=== PATIENT | male | born 1960 | race Caucasian/White ===

== ENCOUNTER 2024-04-02 15:48 | Outpatient (REF) | payer OTHER, SELFPAY ==
--- NOTE | ~2024-04-02 | MR_ITS ---
EXAMINATION: MR BRAIN WITHOUT AND WITH CONTRAST CLINICAL INFORMATION: Twitching left side of face for 3 months with numbness and bridging in ears. COMPARISON: None available. TECHNIQUE: Multiplanar, multisequence MRI of the brain was obtained before and after the intravenous administration of 8 mL of Gadavist. FINDINGS: There is no restricted diffusion seen to suspect any acute ischemic changes. There are no abnormal T2 FLAIR foci seen. There is no edema, extra-axial collection or midline shift. The lateral ventricles are symmetrical in size and configuration and normal for patient's age. No abnormality seen in the posterior fossa. There is normal symmetrical appearing 5th and 7/8th nerve roots without any enhancement or mass effect. Visualized bilateral cavernous sinuses, Meckel's cave and the skull base appears unremarkable. No abnormal enhancing mass or aneurysm visualized. Diffuse mucoperiosteal thickening involving bilateral ethmoid, maxillary, frontal sinuses. The mastoid air cells are well-aerated. Bone marrow signal and the scalp soft tissues are unremarkable. There is normal flow-void signal seen in major cerebral vasculature. MR/MR head/brain wo/w con IMPRESSION: Essentially unremarkable MRI brain with and without contrast. The 5th nerve roots are symmetrical and appear normal. The course. Bilateral chronic inflammatory changes of the sinuses Electronically signed by: Diego Liu MD 04/03/2024 10:45 AM [email or web address]
[2024-04-02] MEDS: gadobutroL 10 ML VIAL 8 ML IVPUSH (16:39)
--- OUTSIDE RECORDS SUMMARY | 2024-04-02 17:35 | XMS_ITS | Data Portability ---
Author Organization [facility], Main Office Address [address] [facility] [address] [place] [id number] Care Team Providers Care Back Feeder Plywood Layup Line Name Role Phone RAUL HILL Primary Care Provider [phone] KEYANA SERRANO Cutting Machine Operator IVAN BUCKNER Neurologist ALONA LOBO Orthopedic Surgeon GWENDOLYN HERNANDEZ Cupola Tapper Helper JANNIE SEARS Neurologist KANDIS ACKERMAN French Teacher [phone] JUSTIN JONES Special Population Paraprofessional Assessment Encounter Date Assessment Date Assessment LastModified by Organization Details LastModified Time 09/19/2023 09/19/2023 Discussed with patient the signs/symptoms warranted for a return to office visit and/or an ER visit. Patient understood and agreed with the plan. Not available 09/19/2023 11:48:54 12/11/2023 12/11/2023 This service was provided using telemedicine. Patient consented to telephone visit Patient was located in the [facility]. Provider was located in the office. No other persons participated in the telemedicine visit except for the patient unless otherwise indicated here. {{}} Total time of visit was 22 minutes. pmadden Not available 12/11/2023 16:51:50 Plan of Treatment Reminders Order Date Submit Date Provider Last Modified By Organization Details Last Modified Time Details Appointments PE EST 2024 02:15P M Raul Hill MD Not available Not available Not available Lab vitamin B12 + folate, serum or blood 2023 024 [place] [facility], [address], [address], [place], [address], 09/19/2023 11:41:44 HbA1c (hemoglo bin A1c), blood 2023 024 [place] [facility], [address], [address], [place], [address], 09/19/2023 11:41:45 CBC w/ auto diff 2023 024 [place] [facility], [address], [address], [place], [address], 09/19/2023 11:41:46 magnesiu m, serum or plasma 2023 024 [place] [facility], [address], [address], [place], [address], 09/19/2023 11:41:45 CMP, serum or plasma 2023 024 [place] [facility], [address], [address], [place], [address], 09/19/2023 11:41:45 vitamin D, 25-hydro xy, total, serum 2023 024 [place] [facility], [address], [address], [place], [address], 09/19/2023 11:41:44 TSH + free T4, serum 2023 024 [place] [facility], [address], [address], [place], [address], 09/19/2023 11:41:45 ESR (erythro cyte sediment ation rate), blood 2023 024 [place] [facility], [address], [address], [place], [address], 09/19/2023 11:41:46 cobalami n and folate panel, serum 2023 024 [facility], [address], [address], [place], [address], 02/21/2024 20:06:12 magnesiu m, serum or plasma 2023 024 [facility], [address], [address], [place], [address], 02/21/2024 20:06:15 CBC w/ auto diff 2023 024 [facility], [address], [address], [place], [address], 02/21/2024 20:06:11 CMP, serum or plasma 2023 024 [facility], [address], [address], [place], [address], 02/21/2024 20:06:12 vitamin D, 25-hydro xy, total, serum 2023 024 [facility], [address], [address], [place], [address], 02/21/2024 20:06:13 TSH, ultra-se nsitive, serum 2023 024 [facility], [address], [address], [place], [address], 02/21/2024 20:06:14 Referral neurolog ist referral 2023 024 suraj Sears MD, [address] [place] [address] , [address], [place], [address], 02/22/2024 14:47:29 oral & maxillof acial surgeon referral 2024 025 [email or web address] [facility], [address] [facility], [place], [address], 03/27/2024 16:43:26 Procedures None recorded . Surgeries None recorded . Imaging XR, chest, 2 view 10/08/ 2024 10/08/2 024 [facility], [facility] [place], [address], 12/12/2023 16:25:05 XR, sacroili ac joint(s) - rule out SIJ 2023 024 [facility], [address] [place] [address], [address], 01/27/2024 23:39:35 XR, hip, unilater al, 4 or more view - eval of left hip pain, rule out OA 2023 024 [facility], [facility] [place], [address], 01/27/2024 23:39:34 Medication Orders Zithroma x Z-Mayito 250 mg tablet 2023 024 [facility], [address] [place], [address], 01/10/2024 14:46:38 monteluk ast 10 mg tablet 2023 024 [facility], [address] [place], [address], 01/10/2024 14:47:33 Patient TargetsNo targets recorded. Patient Instructions Encounter Date Encounter Id Patient Instructions Last Modified By Organization Details Last Modified Time 09/19/2023 [id number] neuropathic pain: care instructions Not available 09/19/2023 11:41:30 12/11/2023 [id number] rec. albuterol 1-2 puffs 3x/day x 3 days, then use every 4 hours as needed for shortness of breath / coughing fits pmadden Not available 12/11/2023 16:43:15 Follow up if no improvement or if symptoms worsen. pmadden Not available 12/11/2023 16:29:11 01/10/2024 [id number] hip bursitis: exercises [email or web address] Not available 01/10/2024 15:25:25 trochanteric bursitis: exercises awychowski Not available 01/10/2024 15:25:24 sacroiliac pain: exercises awychowski Not available 01/10/2024 15:25:25 02/20/2024 [id number] Follow up if no improvement or if symptoms worsen. pmadden Not available 02/20/2024 11:33:19 Reason for Referral Neurologist Referral for Par esthesia Referring Physician: Claudio Pace, Internal Medicine, Encounter Date: 02/20/2024 Oral & Maxillofacial Surgeon Referral for Traumatic hematoma Referring Physician: Joann Mcfarland, Family Medicine, Encounter Date: 03/27/2024 Results Created Date Observation Date Name Description Value Unit Range Abnormal Flag Note LastModifiedBy Organization Detail LastModifiedTime 01/06/20 24 01/07/2024 CBC WITH DIFFE RENTI AL/PL ATELE T WBC 6.1 x10e3 /uL 3.4-10 .8 normal Not Available [facility] ([facility]) [address] [place], [address], 01/08/2024 20:06:32 01/06/20 24 01/07/2024 CBC WITH DIFFE RENTI AL/PL ATELE T RBC 4.96 x10e6 /uL 4.14-5 .80 normal Not Available [facility] ([facility]) [address] [place], [address], 01/08/2024 20:06:32 01/06/20 24 01/07/2024 CBC WITH DIFFE RENTI AL/PL ATELE T hemoglobin 14.8 g/dL 13.0-1 7.7 normal Not Available [facility] ([facility]) [address] [place], [address], 01/08/2024 20:06:32 01/06/20 24 01/07/2024 CBC WITH DIFFE RENTI AL/PL ATELE T hematocrit 46.0 % 37.5-5 1.0 normal Not Available [facility] ([facility]) [address] [place], [address], 01/08/2024 20:06:32 01/06/20 24 01/07/2024 CBC WITH DIFFE RENTI AL/PL ATELE T MCV 93 fL 79-97 normal Not Available [facility] ([facility]) [address] [facility], [place], [address], 01/08/2024 20:06:32 01/06/20 24 01/07/2024 CBC WITH DIFFE RENTI AL/PL ATELE T MCH 29.8 pg 26.6-3 3.0 normal Not Available [facility] ([facility]) [address] [facility], [place], [address], 01/08/2024 20:06:32 01/06/20 24 01/07/2024 CBC WITH DIFFE RENTI AL/PL ATELE T MCHC 32.2 g/dL 31.5-3 5.7 normal Not Available [facility] ([facility]) [address] [facility], [place], [address], 01/08/2024 20:06:32 01/06/20 24 01/07/2024 CBC WITH DIFFE RENTI AL/PL ATELE T RDW 12.8 % 11.6-1 5.4 Not Available [facility] ([facility]) [address] [facility], [place], [address], 01/08/2024 20:06:32 01/06/20 24 01/07/2024 CBC WITH DIFFE RENTI AL/PL ATELE T platelets 223 x10e3 /uL 150-45 0 normal Not Available [facility] ([facility]) [address] [facility], [place], [address], 01/08/2024 20:06:32 01/06/20 24 01/07/2024 CBC WITH DIFFE RENTI AL/PL ATELE T neutrophils 57 % not estab. normal Not Available [facility] ([facility]) [address] [facility], [place], [address], 01/08/2024 20:06:32 01/06/20 24 01/07/2024 CBC WITH DIFFE RENTI AL/PL ATELE T lymphs 27 % not estab. normal Not Available [facility] ([facility]) [address] [facility], [place], [address], 01/08/2024 20:06:32 01/06/20 24 01/07/2024 CBC WITH DIFFE RENTI AL/PL ATELE T monocytes 8 % not estab. normal Not Available [facility] ([facility]) [address] [facility], [place], [address], 01/08/2024 20:06:32 01/06/20 24 01/07/2024 CBC WITH DIFFE RENTI AL/PL ATELE T eos 6 % not estab. normal Not Available [facility] ([facility]) [address] [facility], [place], [address], 01/08/2024 20:06:32 01/06/20 24 01/07/2024 CBC WITH DIFFE RENTI AL/PL ATELE T basos 1 % not estab. normal Not Available [facility] ([facility]) [address] [facility], [place], [address], 01/08/2024 20:06:32 01/06/20 24 01/07/2024 CBC WITH DIFFE RENTI AL/PL ATELE T immature cells CORE FEEDER Not Available [facility] ([facility]) [address] [facility], [place], [address], 01/08/2024 20:06:32 01/06/20 24 01/07/2024 CBC WITH DIFFE RENTI AL/PL ATELE T neutrophils (absolute) 3.6 x10e3 /uL 1.4-7. 0 normal Not Available [facility] ([facility]) [address] [facility], [place], [address], 01/08/2024 20:06:32 01/06/20 24 01/07/2024 CBC WITH DIFFE RENTI AL/PL ATELE T lymphs (absolute) 1.6 x10e3 /uL 0.7-3. 1 normal Not Available [facility] ([facility]) [address] [place], [address], 01/08/2024 20:06:32 01/06/20 24 01/07/2024 CBC WITH DIFFE RENTI AL/PL ATELE T monocytes(ab solute) 0.5 x10e3 /uL 0.1-0. 9 normal Not Available [facility] ([facility]) [address] [place], [address], 01/08/2024 20:06:32 01/06/20 24 01/07/2024 CBC WITH DIFFE RENTI AL/PL ATELE T eos (absolute) 0.3 x10e3 /uL 0.0-0. 4 normal Not Available [facility] ([facility]) [address] [place], [address], 01/08/2024 20:06:32 01/06/20 24 01/07/2024 CBC WITH DIFFE RENTI AL/PL ATELE T baso (absolute) 0.1 x10e3 /uL 0.0-0. 2 normal Not Available [facility] ([facility]) [address] [place], [address], 01/08/2024 20:06:32 01/06/20 24 01/07/2024 CBC WITH DIFFE RENTI AL/PL ATELE T immature granulocytes 1 % not estab. Not Available [facility] ([facility]) [address] [place], [address], 01/08/2024 20:06:32 01/06/20 24 01/07/2024 CBC WITH DIFFE RENTI AL/PL ATELE T immature grans (abs) 0.0 x10e3 /uL 0.0-0. 1 Not Available [facility] ([facility]) [address] [place], [address], 01/08/2024 20:06:32 01/06/20 24 01/07/2024 CBC WITH DIFFE RENTI AL/PL ATELE T NRBC CORE FEEDER Not Available [facility] ([facility]) [address] [facility], [place], [address], 01/08/2024 20:06:32 01/06/20 24 01/07/2024 CBC WITH DIFFE RENTI AL/PL ATELE T hematology comments: CORE FEEDER Not Available [facility] ([facility]) [address] [facility], [place], [address], 01/08/2024 20:06:32 01/06/20 24 01/07/2024 COMP. METAB OLIC PANEL (14) glucose 101 mg/dL 70-99 above high normal Not Available [facility] ([facility]) [address] [facility], [place], [address], 01/08/2024 20:06:33 01/06/20 24 01/07/2024 COMP. METAB OLIC PANEL (14) BUN 17 mg/dL 8-27 normal Not Available [facility] ([facility]) [address] [facility], [place], [address], 01/08/2024 20:06:33 01/06/20 24 01/07/2024 COMP. METAB OLIC PANEL (14) creatinine 1.13 mg/dL 0.76-1 .27 normal Not Available [facility] ([facility]) [address] [facility], [place], [address], 01/08/2024 20:06:33 01/06/20 24 01/07/2024 COMP. METAB OLIC PANEL (14) eGFR 74 mL/mi n/1.7 3 >59 normal Not Available [facility] ([facility]) [address] [facility], [place], [address], 01/08/2024 20:06:33 01/06/20 24 01/07/2024 COMP. METAB OLIC PANEL (14) BUN/creatini ne ratio 15 10-24 normal Not Available [facility] ([facility]) [address] [facility] [place], [address], 01/08/2024 20:06:33 01/06/20 24 01/07/2024 COMP. METAB OLIC PANEL (14) sodium 140 mmol/ L 134-14 4 normal Not Available [facility] ([facility]) [address] [place], [address], 01/08/2024 20:06:33 01/06/20 24 01/07/2024 COMP. METAB OLIC PANEL (14) potassium 4.7 mmol/ L 3.5-5. 2 normal Not Available [facility] ([facility]) [address], [place], [address], 01/08/2024 20:06:33 01/06/20 24 01/07/2024 COMP. METAB OLIC PANEL (14) chloride 103 mmol/ L 96-106 normal Not Available [facility] ([facility]) [address] [place], [address], 01/08/2024 20:06:33 01/06/20 24 01/07/2024 COMP. METAB OLIC PANEL (14) carbon dioxide, total 25 mmol/ L 20-29 normal Not Available [facility] ([facility]) [address] [facility] [place], [address], 01/08/2024 20:06:33 01/06/20 24 01/07/2024 COMP. METAB OLIC PANEL (14) calcium 9.6 mg/dL 8.6-10 .2 normal Not Available [facility] ([facility]) [address] [facility] [place], [address], 01/08/2024 20:06:33 01/06/20 24 01/07/2024 COMP. METAB OLIC PANEL (14) protein, total 6.7 g/dL 6.0-8. 5 normal Not Available [facility] ([facility]) [address], [place], [address], 01/08/2024 20:06:33 01/06/20 24 01/07/2024 COMP. METAB OLIC PANEL (14) albumin 4.6 g/dL 3.9-4. 9 normal Not Available [facility] ([facility]) [address], [place], [address], 01/08/2024 20:06:33 01/06/20 24 01/07/2024 COMP. METAB OLIC PANEL (14) globulin, total 2.1 g/dL 1.5-4. 5 Not Available [facility] ([facility]) [address] [place], [address], 01/08/2024 20:06:33 01/06/20 24 01/07/2024 COMP. METAB OLIC PANEL (14) bilirubin, total 1.1 mg/dL 0.0-1. 2 normal Not Available [facility] ([facility]) [address], [place], [address], 01/08/2024 20:06:33 01/06/20 24 01/07/2024 COMP. METAB OLIC PANEL (14) alkaline phosphatase 77 IU/L 44-121 normal Not Available [facility]) [address] [place], [address], 01/08/2024 20:06:33 01/06/20 24 01/07/2024 COMP. METAB OLIC PANEL (14) AST (SGOT) 22 IU/L 0-40 normal Not Available [facility] ([facility]) [address] [place], [address], 01/08/2024 20:06:33 01/06/20 24 01/07/2024 COMP. METAB OLIC PANEL (14) ALT (SGPT) 36 IU/L 0-44 normal Not Available [facility] ([facility]) [address] , [place], [address], 01/08/2024 20:06:33 01/06/20 24 01/07/2024 LDL GIFTY STERO L (DIRE CT) LDL chol. (direct) 78 mg/dL 0-99 Not Available [facility] ([facility]) [address] [facility], [place], [address], 01/08/2024 20:06:34 01/06/20 24 01/07/2024 LDL GIFTY STERO L (DIRE CT) LDL direct comment: CORE FEEDER Not Available [facility] ([facility]) [address] [facility], [place], [address], 01/08/2024 20:06:34 01/06/20 24 01/08/2024 HEMOG LOBIN A1C hemoglobin A1C 5.7 % 4.8-5. 6 above high normal Predi abete s: 5.7 - 6.4 Diabe emily: >6.4 Glyce keely contr ol for adult s with diabe emily: <7.0 Not Available [facility] ([facility]) [address] [facility], [place], [address], 01/08/2024 20:06:35 01/06/20 24 01/08/2024 T-TRA NSGLU TAMIN ASE (TTG) IGA T-transgluta minase (ttg) IgA <2 U/mL 0-3 Negat hammad 0 - 3 Weak Posit hammad 4 - 10 Posit hammad >10 Tissu e Trans gluta jose manuel e (tTG) has been ident ified as the endom ysial antig en. Studi es have demon str- ated that endom ysial IgA antib odies have over 99% speci ficit y for glute n sensi tive enter opath y. Not Available [facility] ([facility]) [address] [facility], [place], [address], 01/08/2024 20:06:35 01/06/20 24 01/07/2024 CREAT INE KINAS E,TOT AL creatine kinase,total 101 U/L 41-331 normal Not Available [facility]) [address] [facility], [place], [address], 01/08/2024 20:06:36 01/06/20 24 01/07/2024 MAGNE SIUM magnesium 2.1 mg/dL 1.6-2. 3 normal Not Available [facility] ([facility]) [address] [facility], [place], [address], 01/08/2024 20:06:37 01/06/20 24 01/07/2024 IMMUN OGLOB ULIN A, QN, SERUM immunoglobul in A, qn, serum 166 mg/dL 61-437 normal Not Available [facility] ([facility]) [address] [facility], [place], [address], 01/08/2024 20:06:38 02/20/20 24 02/20/2024 CBC WITH DIFFE RENTI AL/PL ATELE T WBC 6.8 x10e3 /uL 3.4-10 .8 normal Not Available [facility] ([facility]) [address] [place], [address], 02/21/2024 20:06:11 02/20/20 24 02/20/2024 CBC WITH DIFFE RENTI AL/PL ATELE T RBC 4.94 x10e6 /uL 4.14-5 .80 normal Not Available [facility] ([facility]) [address] [place], [address], 02/21/2024 20:06:11 02/20/20 24 02/20/2024 CBC WITH DIFFE RENTI AL/PL ATELE T hemoglobin 15.1 g/dL 13.0-1 7.7 normal Not Available [facility] ([facility]) [address] [place], [address], 02/21/2024 20:06:11 02/20/20 24 02/20/2024 CBC WITH DIFFE RENTI AL/PL ATELE T hematocrit 46.2 % 37.5-5 1.0 normal Not Available [facility] ([facility]) [address] [place], [address], 02/21/2024 20:06:11 02/20/20 24 02/20/2024 CBC WITH DIFFE RENTI AL/PL ATELE T MCV 94 fL 79-97 normal Not Available [facility] ([facility]) [address] [place], [address], 02/21/2024 20:06:11 02/20/20 24 02/20/2024 CBC WITH DIFFE RENTI AL/PL ATELE T MCH 30.6 pg 26.6-3 3.0 normal Not Available [facility] ([facility]) [address] [facility], [place], [address], 02/21/2024 20:06:11 02/20/20 24 02/20/2024 CBC WITH DIFFE RENTI AL/PL ATELE T MCHC 32.7 g/dL 31.5-3 5.7 normal Not Available [facility] ([facility]) [address] [place], [address], 02/21/2024 20:06:11 02/20/20 24 02/20/2024 CBC WITH DIFFE RENTI AL/PL ATELE T RDW 12.6 % 11.6-1 5.4 Not Available [facility] ([facility]) [address] [place], [address], 02/21/2024 20:06:11 02/20/20 24 02/20/2024 CBC WITH DIFFE RENTI AL/PL ATELE T platelets 215 x10e3 /uL 150-45 0 normal Not Available [facility] ([facility]) [address] [place], [address], 02/21/2024 20:06:11 02/20/20 24 02/20/2024 CBC WITH DIFFE RENTI AL/PL ATELE T neutrophils 54 % not estab. normal Not Available [facility] ([facility]) [address] [facility], [place], [address], 02/21/2024 20:06:11 02/20/20 24 02/20/2024 CBC WITH DIFFE RENTI AL/PL ATELE T lymphs 30 % not estab. normal Not Available [facility] ([facility]) [address] [facility], [place], [address], 02/21/2024 20:06:11 02/20/20 24 02/20/2024 CBC WITH DIFFE RENTI AL/PL ATELE T monocytes 9 % not estab. normal Not Available [facility] ([facility]) [address] [place], [address], 02/21/2024 20:06:11 02/20/20 24 02/20/2024 CBC WITH DIFFE RENTI AL/PL ATELE T eos 6 % not estab. normal Not Available [facility] ([facility]) [address] [place], [address], 02/21/2024 20:06:11 02/20/20 24 02/20/2024 CBC WITH DIFFE RENTI AL/PL ATELE T basos 1 % not estab. normal Not Available [facility] ([facility]) [address] [place], [address], 02/21/2024 20:06:11 02/20/20 24 02/20/2024 CBC WITH DIFFE RENTI AL/PL ATELE T immature cells CORE FEEDER Not Available [facility] ([facility]) [address] [place], [address], 02/21/2024 20:06:11 02/20/20 24 02/20/2024 CBC WITH DIFFE RENTI AL/PL ATELE T neutrophils (absolute) 3.7 x10e3 /uL 1.4-7. 0 normal Not Available [facility] ([facility]) [address] [place], [address], 02/21/2024 20:06:11 02/20/20 24 02/20/2024 CBC WITH DIFFE RENTI AL/PL ATELE T lymphs (absolute) 2.1 x10e3 /uL 0.7-3. 1 normal Not Available [facility] ([facility]) [address] [facility], [place], [address], 02/21/2024 20:06:11 02/20/20 24 02/20/2024 CBC WITH DIFFE RENTI AL/PL ATELE T monocytes(ab solute) 0.6 x10e3 /uL 0.1-0. 9 normal Not Available [facility] ([facility]) [address] [facility], [place], [address], 02/21/2024 20:06:11 02/20/20 24 02/20/2024 CBC WITH DIFFE RENTI AL/PL ATELE T eos (absolute) 0.4 x10e3 /uL 0.0-0. 4 normal Not Available [facility] ([facility]) [address] [facility], [place], [address], 02/21/2024 20:06:11 02/20/20 24 02/20/2024 CBC WITH DIFFE RENTI AL/PL ATELE T baso (absolute) 0.1 x10e3 /uL 0.0-0. 2 normal Not Available [facility] ([facility]) [address] [facility], [place], [address], 02/21/2024 20:06:11 02/20/20 24 02/20/2024 CBC WITH DIFFE RENTI AL/PL ATELE T immature granulocytes 0 % not estab. Not Available [facility] ([facility]) [address] [facility], [place], [address], 02/21/2024 20:06:11 02/20/20 24 02/20/2024 CBC WITH DIFFE RENTI AL/PL ATELE T immature grans (abs) 0.0 x10e3 /uL 0.0-0. 1 Not Available [facility] ([facility]) [address], [place], [address], 02/21/2024 20:06:11 02/20/20 24 02/20/2024 CBC WITH DIFFE RENTI AL/PL ATELE T NRBC CORE FEEDER Not Available [facility] ([facility]) [address], [place], [address], 02/21/2024 20:06:11 02/20/20 24 02/20/2024 CBC WITH DIFFE RENTI AL/PL ATELE T hematology comments: CORE FEEDER Not Available [facility] ([facility]) [address], [place], [address], 02/21/2024 20:06:11 02/20/20 24 02/21/2024 COMP. METAB OLIC PANEL (14) glucose 93 mg/dL 70-99 normal Not Available [facility] ([facility]) [address], [place], [address], 02/21/2024 20:06:12 02/20/20 24 02/21/2024 COMP. METAB OLIC PANEL (14) BUN 13 mg/dL 8-27 normal Not Available [facility] ([facility]) [address] [place], [address], 02/21/2024 20:06:12 02/20/20 24 02/21/2024 COMP. METAB OLIC PANEL (14) creatinine 1.00 mg/dL 0.76-1 .27 normal Not Available [facility] ([facility]) [address] [place], [address], 02/21/2024 20:06:12 02/20/20 24 02/21/2024 COMP. METAB OLIC PANEL (14) eGFR 86 mL/mi n/1.7 3 >59 normal Not Available [facility] ([facility]) [address] [place], [address], 02/21/2024 20:06:12 02/20/20 24 02/21/2024 COMP. METAB OLIC PANEL (14) BUN/creatini ne ratio 13 10-24 normal Not Available [facility] ([facility]) [address] [facility] [place], [address], 02/21/2024 20:06:12 02/20/20 24 02/21/2024 COMP. METAB OLIC PANEL (14) sodium 140 mmol/ L 134-14 4 normal Not Available [facility] ([facility]) [address] [facility] [place], [address], 02/21/2024 20:06:12 02/20/20 24 02/21/2024 COMP. METAB OLIC PANEL (14) potassium 4.9 mmol/ L 3.5-5. 2 normal Not Available [facility] ([facility]) [address] [facility], [place], [address], 02/21/2024 20:06:12 02/20/20 24 02/21/2024 COMP. METAB OLIC PANEL (14) chloride 103 mmol/ L 96-106 normal Not Available [facility] ([facility]) [address] [facility], [place], [address], 02/21/2024 20:06:12 02/20/20 24 02/21/2024 COMP. METAB OLIC PANEL (14) carbon dioxide, total 25 mmol/ L 20-29 normal Not Available [facility] ([facility]) [address] [facility] [place], [address], 02/21/2024 20:06:12 02/20/20 24 02/21/2024 COMP. METAB OLIC PANEL (14) calcium 9.8 mg/dL 8.6-10 .2 normal Not Available [facility] ([facility]) [address] [facility] [place], [address], 02/21/2024 20:06:12 02/20/20 24 02/21/2024 COMP. METAB OLIC PANEL (14) protein, total 6.8 g/dL 6.0-8. 5 normal Not Available [facility] ([facility]) [address] [place], [address], 02/21/2024 20:06:12 02/20/20 24 02/21/2024 COMP. METAB OLIC PANEL (14) albumin 4.7 g/dL 3.9-4. 9 normal Not Available [facility] ([facility]) [address] [place], [id number], 02/21/2024 20:06:12 02/20/20 24 02/21/2024 COMP. METAB OLIC PANEL (14) globulin, total 2.1 g/dL 1.5-4. 5 Not Available [facility] ([facility]) [address] [place], [address], 02/21/2024 20:06:12 02/20/20 24 02/21/2024 COMP. METAB OLIC PANEL (14) bilirubin, total 0.9 mg/dL 0.0-1. 2 normal Not Available [facility] ([facility]) [address] [place], [address], 02/21/2024 20:06:12 02/20/20 24 02/21/2024 COMP. METAB OLIC PANEL (14) alkaline phosphatase 73 IU/L 44-121 normal Not Available [facility] ([facility]) [address] [place], [address], 02/21/2024 20:06:12 02/20/20 24 02/21/2024 COMP. METAB OLIC PANEL (14) AST (SGOT) 28 IU/L 0-40 normal Not Available [facility] ([facility]) [address] [place], [address], 02/21/2024 20:06:12 02/20/20 24 02/21/2024 COMP. METAB OLIC PANEL (14) ALT (SGPT) 47 IU/L 0-44 above high normal Not Available [facility] ([facility]) [address] [facility], [place], [address], 02/21/2024 20:06:12 02/20/20 24 02/21/2024 VITAM IN B12 AND FOLAT E vitamin B12 331 pg/mL 232-12 45 normal Not Available [facility] ([facility]) [address] [facility], [place], [address], 02/21/2024 20:06:12 02/20/20 24 02/21/2024 VITAM IN B12 AND FOLAT E folate (folic acid), serum 9.7 NG/mL >3.0 normal A serum folat e kim ntrat ion of less than 3.1 ng/mL is consi dered to repre sent clini tara defic iency . Not Available [facility] ([facility]) [address] [facility], [place], [address], 02/21/2024 20:06:12 02/20/20 24 02/21/2024 VITAM IN D, 25-HY DROXY vitamin D, 25-hydroxy 17.5 NG/mL 30.0-1 00.0 below low normal Vitam in D defic iency has been defin ed by the Insti tute of Medic ine and an Endoc rine Socie ty pract ice guide line as a level of serum 25-OH vitam in D less than 20 ng/mL (1,2) . The Endoc rine Socie ty went on to furth er defin e vitam in D insuf ficie ncy as a level betwe en 21 and 29 ng/mL (2). 1. IOM (Inst itute of Medic ine). 2009. Dieta ry refer ence nabila es for calci um and D. Aniyah saeed [place]: The Natio nal [facility] Press . 2. Danielle matson [place], [place], [place] off-F errar i AZUL, et al. Evalu ation , treat ment, and preve ntion of vitam in D defic iency : an Endoc rine Socie ty clini tara pract ice guide line. JCEM. 2010; 96(7) :1911 -30. Not Available [facility] ([facility]) [address] [facility], [place], [address], 02/21/2024 20:06:13 02/20/20 24 02/21/2024 TSH RFX ON ABNOR MAL TO FREE T4 TSH 1.710 uIU/m L 0.450- 4.500 normal Not Available [facility] ([facility]) [address] [facility], [place], [address], 02/21/2024 20:06:14 02/20/20 24 02/21/2024 MAGNE SIUM magnesium 2.2 mg/dL 1.6-2. 3 normal Not Available [facility] ([facility]) [address] [facility], [place], [address], 02/21/2024 20:06:15 12/12/19 24 12/12/2023 XR, chest , 2 view Chest 2 Views Fronta l and Lat Reason : cough COMPAR RONI: Multip le prior chest radiog raphs with the most recent dated 022. FINDIN GS: LINES AND TUBES: None. LUNGS AND PLEURA : Clear lungs. Normal pulmon jolie vascul arity. No pleura l effusi on. No pneumo thorax . HEART, MEDIAS TINUM AND HERNÁN: Heart is normal in size. Normal medias tinal and hilar contou r. BONES AND SOFT TISSUE S: No acute abnorm ality. IMPRES ALISON: No acute abnorm ality. WSN: [id number] Orderi ng Physic jacklyn: Jd Pace Dictat ed By: Farhat Salinas MD, V Dictat ed Date/T tsar: 4:21 pm Review ed By: Alexandro pires MD, Farhat Torres Signed By: Farhat Salinas MD, V Signed Date/T star: 4:21 pm Transc ribed By: RODNEY Transc ribed Date/T star: 4:21 pm Patien t Class: Outpat ient manolo [facility] (Outpt Imaging) [address] [place], [address], 01/10/2024 15:15:53 01/26/20 24 01/26/2024 XR, hip, unila teral , 2 or 3 view Hip Comp 2 Views Left REASON : eval of left hip pain. rule out OA COMPAR RONI: None. FINDIN GS: No fractu re or disloc ation. Well preser balta joint space. Normal femora l head contou r withou t eviden ce of avascu lar necros is. Small soft tissue calcif icatio n adjace nt to the latera l aspect of the acetab ulum. IMPRES ALISON: No acute osseou s abnorm ality or signif icant degene rative change . WSN: [id number] Orderi ng Physic jacklyn: Raul Torresat ed By: Georges Barnett MD Dictat ed Date/T star: 1:43 pm Review ed By: Georges Barnett MD Signed By: Georges Barnett MD Signed Date/T star: 1:43 pm Transc ribed By: RODNEY Transc ribed Date/T star: 1:43 pm Patien t Class: Outpat ient YARELIS [facility] (Outpt Imaging) [address] [place], [address], 01/28/2024 13:38:34 01/26/20 24 01/26/2024 XR, sacro iliac joint (s), 3 or more view Sacroi liac Joints Min 3 Views REASON : eval of left hip pain. rule out OA COMPAR RONI: None FINDIN GS: No bone lesion s or fractu res. No arthri tic change s of the SI joints . Normal alignm ent of the sacrum and coccyx . Normal soft tissue s. IMPRES ALISON: Normal sacroi liac joints . WSN: [id number] Orderi ng Physic jacklyn: Raul Torres Dictat ed By: Georges Barnett MD Dictat ed Date/T star: 1:44 pm Review ed By: Georges Barnett MD Signed By: Georges Barnett MD Signed Date/T star: 1:44 pm Transc ribed By: RODNEY Transc ribed Date/T star: 1:44 pm Patien t Class: Outpat ient [facility] (Outpt Imaging) [address] [place], [address], 01/28/2024 13:38:34 Result Notes None recorded. Problems Name Problem SNOMED Code Status Onset Date Resolution Date Notes Provider Name and Address Organization Details Recorded Time Disorder of rotator cuff 401821974 Completed 201601/06/2019 Raul Hill MD [address], [place], [address], [facility] 9 13:25:53 Chilblai ns 53085229 Active 2016 FAVIAN Cedeno [facility] 9 13:02:15 Asthma 649341428 Completed 201602/22/2017 Raul Hill MD [address], [place], [address], [facility] 7 08:04:11 Hypercho lesterol emia 29959648 Active 2016 FAVIAN Cedeno, [facility] 9 13:02:15 Vitamin D deficien cy 25687038 Active 2016 FAVIAN Cedeno [facility] 9 13:02:15 Ventricu lar prematur e beats 24608604 Active 2016 FAVIAN Cedeno, [facility] 9 13:02:15 Greater trochant blayne pain syndrome 1512975 Active 2016 FAVIAN Cedeno, [facility] 9 13:02:15 Hyperbil irubinem ia 62597776 Completed 201601/06/2019 Raul Hill MD [address] [facility] [address], [facility], [address], [facility] [place] 9 13:25:26 Snoring 43533964 Completed 201601/12/2020 Raul Hill MD [address] [facility] [address], [facility], [address], [facility] [place] 0 11:53:26 Sleep apnea 06690455 Completed 201601/23/2017 Raul Hill MD [address] [address], [facility] [place], [address], [facility] 7 11:27:27 Bilatera l tinnitus 04615565055 02 Active 2016 FAVIAN Cedeno, [facility] 9 13:02:15 Ulcer of duodenum 80178227 Completed 201609/20/2017 Raul Hill MD [address] [address], [facility] [place], [address], [facility] 8 10:50:12 Erosive gastriti s 56779329778 50512 Completed 201609/20/2017 Raul Hill MD [address] [address], [facility] [place], [address], [facility] 8 10:50:09 Esophagi tis 95897952 Completed 201609/20/2017 Raul Hill MD [address] [address], [facility] [place], [address], [facility] 8 10:52:31 Arterios clerotic retinopa thy 16925676 Active 2016 moderate , bilatera l FAVIAN Cedeno, [facility] 9 13:02:15 Right carotid artery stenosis 34794705560 9100 Completed 201601/06/2019 50-69% Raul Hill MD [address], [place], [address], [facility] 9 13:24:59 Periodic limb movement disorder 479151111 Active 2016 FAVIAN Cedeno, [facility] 9 13:02:15 Trigemin al neuralgi a 38729396 Completed 201601/12/2020 aRul Hill MD [address] [facility] [address], [place], [address], [facility] [place] 0 11:53:31 Headache 97478007 Completed 201601/06/2019 Raul Hill MD [address] [facility] [address], [place], [address], [facility] 9 13:23:56 Cervical arthriti s 551614305 Active 2016 FAVIAN Cedeno, [facility] 9 13:02:15 History of duodenal ulcer 092704863 Active 2017 FAVIAN Cedeno, [facility] 9 13:02:15 Polyp of colon 52217001 Active 2017 FAVIAN Cedeno, [facility] 9 13:02:15 Body mass index 25-29 - overweig ht 762447472 Active 2018 Raul Hill MD [address], [place], [address], [facility] 9 13:28:06 Allergic headache 0099003 Active 2019 Raul Hill MD [address], [place], [address], [facility] 0 12:04:33 Bilatera l cataract s 00509674 Active 2019 Raul Hill MD [address], [place], [address], [facility] 0 09:56:54 Total bilirubi n above referenc e range 50643976303 9108 Completed 201901/30/2022 Raul Hill MD [address], [place], [address], [facility] [place] 2 11:53:16 Subconju nctival hemorrha ge 24436067 Completed 202001/25/2021 Raul Hill MD [address], [place], [address], [facility] [place] 1 09:28:37 Nuclear sclerosi s 542944040 Active 2020 Raul Hill MD [address], [place], [address], [facility] 1 09:19:50 Prediabe emily 667856355 Active 2020 Raul Hill MD [address], [place], [address], [facility] 1 09:20:44 History of asthma 127233083 Active 2020 Raul Hill MD [address], [place], [address], [facility] [place] 1 09:43:50 Long-ter m current use of antiplat elet drug 76458347920 4101 Active 2020 Raul Hill MD [address], [place], [address], [facility] 1 09:55:25 Gynecoma stia 0656516 Active 2021 Lucille Villatoro [place] null, [facility] 2 13:33:07 Gastroes ophageal reflux disease 105048139 Active 2021 Raul Hill MD [address], [place], [address], [facility] [place] 2 13:58:59 Internal hemorrho ids 19396962 Active 2021 Raul Hill MD [address], [place], [address], [facility] 2 11:46:36 Tarsal tunnel syndrome 15805556 Active 2021 Raul Hill MD [address], [place], [address], [facility] 2 11:08:54 Carpal tunnel syndrome 26252626 Active 2021 Raul Hill MD [address], [place], [address], [facility] 2 11:09:23 Temporom andibula r joint disorder 27388599 Active 2021 Raul Hill MD [address], [place], [address], [facility] 2 11:09:42 Congenit al pes planus 79138924 Active 2021 Raul Hill MD [address], [place], [address], [facility] 2 11:10:05 Pain in axilla 399734768 Active 2022 Raul Hill MD [address], [place], [address], [facility] 3 12:45:43 Mild intermit tent asthma 548318540 Active 2023 Claudio Pace PA-C [address] [address], [place], [address], [facility] 4 16:52:41 Parslade rasheed 44045586 Active 2023 Claudio Pace PA-C [address] [address], [place], [address], [facility] 4 12:01:04 Problem Notes None recorded. Procedures Surgical History Date Name Laterality Status Provider Name and Address Organization Details Recorded Time 1 Orthopedic Surgery completed Raul Hill MD [address] [address], [place], [address], [facility] 01/25/2021 08:58:56 1 procedure on wrist completed Raul Hill MD [address] [address], [place], [address], [facility] 02/09/2021 20:02:24 7 Egd diagnostic brush wash completed Raul Hill MD [address], [address], [facility] 02/21/2017 12:29:31 7 Colonoscopy [facility] 09/20/2017 10:34:53 7 Endoscopic us exam esoph completed aRul Hill MD [address] [facility] [address] [facility], [place], [address], [facility] 02/21/2017 12:29:47 Breast Surgery completed Raul Hill MD [address], [address], [facility] 06/26/2016 10:19:36 Imaging Results Imaging Date Name Status LastModified by Organiz ation Details LastModified Time 12/12/2023 XR, chest, 2 view completed [facility] (Outpt Imaging) [address] [place], [address], 01/10/2024 15:15:53 01/26/2024 XR, hip, unilateral, 2 or 3 view completed [facility] (Outpt Imaging) [address] [place], [address], 01/28/2024 13:38:34 01/26/2024 XR, sacroiliac joint(s), 3 or more view completed [facility] (Outpt Imaging) [address] [place], [address], 01/28/2024 13:38:34 Procedure Notes None recorded. Medical Equipment None Reported. Allergies Allergen ID Allergen Name Allergen Category Reaction Reaction Severity Criticality Documentation Date Start Date Code Code System Note Provider Name and Address Organization Details Recorded Time 63603 atorvasta tin medicatio n myalgias (muscle pain) moderate low 11/01/2022 84263 RxNorm Nely Banks LPN [facility] 4 15:29:03 Medications Name Sig Start Date Stop Date Status Note LastModified by Organization Details LastModified Time cyclobenza evaristo 10 mg tablet 11/20 completed Not Available Not Available Not Available atorvastat in 40 mg tablet Take 1 tablet every day by oral route for 90 days. 11/01 completed GI upset Not Available Not Available Not Available azithromyc in 250 mg tablet TAKE 2 TABLETS (500 MG) BY ORAL ROUTE ONCE DAILY FOR 1 DAY THEN 1 TABLET (250 MG) BY ORAL ROUTE ONCE DAILY FOR 4 DAYS 01/09 completed Not Available Not Available Not Available sucralfate 1 gram tablet Take 1 tablet every day by oral route for 30 days. 02/21 completed Not Available Not Available Not Available prednisone 20 mg tablet Take 2 tablets every day by oral route for 5 days. 09/18 completed Not Available Not Available Not Available Diflucan 150 mg tablet Take 1 tablet every 72 hours by oral route. 12/10 completed Not Available Not Available Not Available clopidogre l 75 mg tablet Take 1 tablet every day by oral route for 90 days. active Not Available Not Available No t Available triamcinol one acetonide 0.1 % topical cream 06/26 completed Not Available Not Available Not Available pantoprazo le 20 mg tablet,del ayed release Take 1 tablet every day by oral route. active Not Available Not Available No t Available famotidine 20 mg tablet TAKE ONE TABLET BY MOUTH TWICE A DAY NEEDED active Not Available Not Available No t Available benzonatat e 100 mg capsule 06/26 completed Not Available Not Available Not Available econazole nitrate 1 % topical cream 12/10 completed Not Available Not Available Not Available cephalexin 500 mg capsule Take 1 capsule every 6 hours by oral route for 7 days. 07/14 completed Not Available Not Available Not Available pantoprazo le 40 mg tablet,del ayed release TAKE 1 TABLET BY MOUTH ONCE DAILY active Not Available Not Available No t Available gabapentin 300 mg capsule Take by oral route for 30 days. 02/21 completed Not Available Not Available Not Available montelukas t 10 mg tablet Take 1 tablet every day by oral route for 30 days. 01/09 completed Not Available Not Available Not Available methylpred nisolone 4 mg tablets in a dose pack 11/20 completed Not Available Not Available Not Available ketoconazo le 2 % topical cream 08/30 completed Not Available Not Available Not Available magnesium 250 mg (as magnesium oxide) tablet Take 1 tablet every day by oral route for 30 days. 01/09 completed Not Available Not Available Not Available tobramycin 0.3 %-dexameth asone 0.1 % eye drops,susp ension 09/18 completed Not Available Not Available Not Available oxycodone 5 mg tablet TAKE 1 TABLET BY MOUTH EVERY 4 HOURS NEEDED FOR PAIN DIRECTED . (DO NOT DRIVE WHILE ON THIS MEDICATI ON) 01/25 completed Not Available Not Available Not Available Vitamin D3 25 mcg (1,000 unit) capsule Take 1 capsule every day by oral route. 08/30 completed Not Available Not Available Not Available rosuvastat in 10 mg tablet Take 1 tablet every day by oral route for 90 days. active Not Available Not Available No t Available Atrovent HFA 17 mcg/actuat ion aerosol inhaler Inhale 2 puffs every 4-6 hours by inhalati on route as needed for 30 days. 12/10 completed Not Available Not Available Not Available Allerclear 10 mg tablet Take 1 tablet every day by oral route. 06/20 completed Not Available Not Available Not Available ProAir HFA 90 mcg/actuat ion aerosol inhaler 06/26 completed Not Available Not Available Not Available ProAir HFA 2 puffs every 4-6 hours as needed 01/06 completed Not Available Not Available Not Available cholecalci ferol (vitamin D3) 1,250 mcg (50,000 unit) capsule Take 1 capsule every week by oral route for 56 days. 2023 active Not Available Not Available Not Avai lable Xyzal 5 mg tablet Take 1 tablet every day by oral route as needed. 02/23 completed Not Available Not Available Not Available loratadine 10 mg capsule Take 1 capsule every day by oral route. 01/10 completed Not Available Not Available Not Available albuterol 90 mcg-budeso nide 80 mcg/actuat ion HFA aerosol inhaler Inhale 2 inhalati ons 4 times a day by inhalati on route as needed. active rarely uses Not Available Not Available Not Available Vitals Date Recorded Body height Body mass index (BMI) Body weight Heart rate Oxygen saturation Oxygen saturation in Arterial blood by Pulse oximetry Body temperature Systolic blood pressure Diastolic blood pressure Provider Name and Address Organization Details Last Updated DateTime 4 165.74 cm 28.1 kg/m2 38449.7 g 69 /min 99 % 99 % 97.9 [degF] 128 mm[Hg] 84 mm[Hg] Gaby Aguilar MA [facility] 4 11:32:39 Date Recorded Body height Body mass index (BMI) Body weight Oxygen saturation Oxygen saturation in Arterial blood by Pulse oximetry Heart rate Body temperature Systolic blood pressure Diastolic blood pressure Provider Name and Address Organization Details Last Updated DateTime 4 165.74 cm 28.1 kg/m2 44196.1 g 100 % 100 % 96 /min 97.5 [degF] 115 mm[Hg] 71 mm[Hg] Sanaz Figueredo MA [facility] 4 14:46:06 Date Recorded Body height Body mass index (BMI) Body weight Heart rate Oxygen saturation Oxygen saturation in Arterial blood by Pulse oximetry Body temperature Systolic blood pressure Diastolic blood pressure Provider Name and Address Organization Details Last Updated DateTime 4 165.74 cm 28 kg/m2 27826.2 1 g 83 /min 98 % 98 % 98 [degF] 120 mm[Hg] 79 mm[Hg] Michelle Herbert [facility] 4 11:18:58 Date Recorded Body height Body mass index (BMI) Body weight Heart rate Oxygen saturation Oxygen saturation in Arterial blood by Pulse oximetry Body temperature Systolic blood pressure Diastolic blood pressure Provider Name and Address Organization Details Last Updated DateTime 5 165.74 cm 28.1 kg/m2 38384.7 g 105 /min 99 % 99 % 98.2 [degF] 97 mm[Hg] 62 mm[Hg] Gaby Aguilar MA [facility] 5 11:35:43 Social History Question Answer Notes LastModified by Organizat ion Details LastModified Time Tobacco Smoking Status [facility]/26/2016 09:43:38 Do You Have An Advance Directive? Yes Partner/D julio [email or web address] Information not available 01/30/2022 What Is Your Level Of Alcohol Consumption? Occasional [email or web address] Information not available 06/26/2016 Is Blood Transfusion Acceptable In An Emergency? Yes Information not available 06/26/2016 What Is Your Level Of Caffeine Consumption? None Decaf [email or web address] Information not available 01/30/2022 How Much Tobacco Do You Chew? None Information not available 09/20/2017 In The 14 Days Before Symptom Onset, Have You Had Close Contact With A Laboratory-confir med COVID-19 While That Case Was Ill? No [email or web address] Information not available 01/30/2022 In The 14 Days Before Symptom Onset, Have You Had Close Contact With A Person Who Is Under Investigation For COVID-19 While That Person Was Ill? No [email or web address] Information not available 01/30/2022 Have You Been To An Area Known To Be High Risk For COVID-19? No [email or web address] Information not available 01/30/2022 Are You Currently Employed? Yes [email or web address] Information not available 06/26/2016 What Type Of Diet Are You Following? REGULAR [email or web address] Information not available 06/26/2016 Which Illicit Or Recreational Drugs Have You Used? None Information not available 06/26/2016 Do You Or Have You Ever Used E-cigarettes Or Vape? Never Used Electronic Cigarettes [email or web address] Information not available 01/30/2022 What Is Your Occupation? [employer] Information not available 05/29/2023 Live Alone Or With Others? With Others Female Partner/D anielle [email or web address] Information not available 01/30/2022 Do You Take Precautions To Prevent Distracted Driving? Yes [email or web address] Information not available 06/26/2016 How Often Do You Need To Have Someone Help You When You Read Instructions, Pamphlets, Or Other Written Material From Your Doctor Or Pharmacy? Never Information not available 09/20/2017 Have You Served In The ? No [email or web address] Information not available 06/26/2016 Have You Or Anyone In Your Household Had Any Of The Following Symptoms In The Last 14 Days: Sore Throat, Cough, Chills, Body Aches For Unknown Reasons, Shortness Of Breath For Unknown Reasons, Loss Of Smell, Loss Of Taste, Fever At Or Greater Than 100 Degrees Fahrenheit? No Information not available 08/30/2020 Are You Or Anyone In Your Household A Health Care Provider Or Emergency Responder? No Information not available 08/30/2020 To The Best Of Your Knowledge Have You Been In Close Proximity To Any Individual Who Tested Positive For COVID-19? No Information not available 08/30/2020 *AWV ONLY* Are You Presently Prescribed Opioid Medication By PCP Or Specialist? If YES -Provider Assess The Benefit For Other, Non-opioid Pain Therapies Instead, Even If The Patient Does Not Have OUD But Is Possibly At Risk. No Information not available 01/25/2021 Have You Recently Traveled To A COVID-19 High Risk Area Or Gathering In The Last 10 Days? No Information not available 08/30/2020 What Was The Date Of Your Most Recent Tobacco Screening? 05/29/2023 [email or web address] Information not available 05/29/2023 How Many Children Do You Have? 0 Information not available 01/25/2021 Do You Use Protection During Sex? No [email or web address] Information not available 06/26/2016 Do You Use Your Seat Belt Or Car Seat Routinely? Yes Information not available 01/25/2021 Seat Belts Used Routinely Yes [email or web address] Information not available 01/30/2022 Are You Sexually Active? Yes [email or web address] Information not available 06/26/2016 Smoke Alarm In Home Yes [email or web address] Information not available 01/30/2022 Do You Have Smoke And Carbon Monoxide Detectors In Your Home? Yes Information not available 01/25/2021 At What Age Did You Start Smoking Tobacco? 0 Information not available 09/20/2017 Are You Passively Exposed To Smoke? No [email or web address] Information no t available 06/26/2016 Do You Or Have You Ever Used Smokeless Tobacco? Never Used Smokeless Tobacco Information not available 01/12/2020 How Much Tobacco Do You Smoke? No Information not available 01/12/2020 Do You Use Any Illicit Or Recreational Drugs? No [email or web address] Information not available 01/30/2022 Do You Use Sunscreen Routinely? Yes [email or web address] Information not available 06/26/2016 How Many Years Have You Smoked Tobacco? 0 Information not available 09/20/2017 Do You Or Have You Ever Used Any Other Forms Of Tobacco Or Nicotine? No [email or web address] Information not available 01/30/2022 Sex: Unknown Functional Status Question Answer Note LastModified by Organizat ion Details LastModified Time Are you able to walk? YESWOREST [email or web address] Information not available 01/30/2022 Are you able to care for yourself? Yes [email or web address] Information not available 06/26/2016 What is your exercise level? Occasional Information not available 09/20/2017 Mental Status None recorded. Family History Relationship Description Onset Age of this Age Resolved Age Notes LastModified by Organization Details LastModified Time Brother Bipolar disorder Not available 01/30 10:58:58 Brother Diabetes mellitus [email or web address] Not available 06/26 07:37:49 Brother Rheumatoid arthritis 7 [email or web address] Not available 01/30 10:58:58 Brother Epilepsy Not availa ble 01/30/2022 10:58:58 Father Diabetes mellitus [email or web address] Not available 06/26 07:37:49 Father Myocardial infarction 69 [email or web address] Not available 01/04 10:58:58 Mother Hypertensive disorder [email or web address] Not available 01/06 13:29:11 Medical History Condition Response Gout N Other N Kidney Stones N Blood Diseases N Hyperthyroidism N Breast Cancer N Hypothyroidism N Lung Disease N Depression N COPD N Defects or Inherited Disease N Anesthesia Complications N Headaches/Migraines N Anxiety Disorder N Varicose Veins N Obesity N Vision or Eye Problems Y Arthritis N Head Injury/Concussion N Infertility N Polyps N Congenital Anomalies N Acid Reflux (GERD) Y Cancer N Stroke N ADHD N Endometriosis N High Cholesterol N Liver Disease N Fibromyalgia N Kidney Disease N Heart Problems N Ear or Hearing Problems N Hospitalizations N Thyroid Problems N GI Problems N Acne N Eating Disorder N Skin Problems N Anemia N Constipation N Bladder Problems N Mental Illness N Diabetes N Ovarian Cancer N Blood Transfusions N Seizures/Epilepsy N Tuberculosis N AIDS/HIV N Congestive Heart Failure (CHF) N Eczema N Abuse/Domestic Violence N Diverticulitis N Asthma Y Allergies Y Reflux/GERD Y Hepatitis N Pulmonary Embolism N Hypertension N Chicken Pox N Autism Spectrum Disorder (ASD) N Osteoporosis N Immunizations Vaccine Type Date Status Note Provider Nam e and Address Organization Details Recorded Time Tdap 5 completed FAVIAN Cedeno [facility] 01/06/2019 13:02:19 COVID-19, mRNA, LNP-S, PF, 30 mcg/0.3 mL dose 1 completed FAVIAN Cedeno [facility] 01/25/2021 08:42:42 COVID-19, mRNA, LNP-S, PF, 30 mcg/0.3 mL dose 1 FAVIAN Valle [facility] 01/25/2021 08:42:42 Influenza, split virus, trivalent, preservative 4 completed FAVIAN Cedeno [facility] 01/25/2021 08:42:42 Influenza, split virus, quadrivalent, PF 7 completed FAVIAN Cedeno, [facility] 09/13/2021 13:21:32 Influenza, split virus, quadrivalent, PF 9 completed FAVIAN Cedeno, [facility] 09/13/2021 13:21:32 Influenza, split virus, quadrivalent, PF 1 completed FAVIAN Cedeno, [facility] 09/13/2021 13:21:32 Influenza, split virus, quadrivalent, PF 2 completed FAVIAN Hall [facility] 01/30/2022 11:14:30 zoster recombinant 4 completed FAVIAN Hall, [facility] 02/20/2024 11:12:55 Influenza, split virus, trivalent, PF 4 completed Raul Hill MD [address], [address] 01/10/2024 16:46:34 Past Encounters Encounter ID Performer Location Encounter Start Date Encounter Closed Date Diagnosis/Indication Diagnosis SNOMED-CT Code Diagnosis ICD10 Code Diagnosis Note [id number] Raul Hill MD Main Office [address] [address] 06/26/2016 09:16:40 06/26/2016 10:46:29 Adult health examination 186131403 Z00.01 Immunizati on status utd, flu advised in the Fall. Will screen based on risk factors. Overdue for colon cancer screening. Regular dental and ophtho care advised as well as seat belt and sunscreen use. Distracted driving discussed. Advance directives in place. Screening for malignant neoplasm of colon 166820551 Z12.11 Pt will schedule referral. Advised to call with any problems. Hypercholesterolemia 136 87947 E78.01 Will reassess and discuss tx options depending on CV risk. Vitamin D deficiency 347 97842 E55.9 Has history, will see if persistent and replete if indicated. Asthma 234392623 J45.90 9 Mild intermitte nt per report. Advised to call for eval if requiring rescue inhaler regularly. Body mass index 25-29 - overweight 655927171 E66.3 Z68.25 Paresthesia of skin 1026 51359 R20.2 dx'd with Chilblains which is the likely etiology. Will screen for other possible metabolic causes. Hearing loss 13351999 H9 1.91 Mild, pt will call for eval if worse. Multiple joint pain 3567 8005 M25.50 If abnl will discuss rheum referral. [id number] Raul Hill MD Main Office [address] [facility] [place] [id number] 11/24/2016 12:59:09 11/24/2016 14:19:12 Pure hypercholesterolemia 034639368 E78.00 Based on ophtho exam findings will manage as PAD and institute aggressive risk factor control with goal LDL level<70. >45 minutes spent discussing test results, pathophysi ology of CVD developmen t and treatment options. Atheroscle rosis of artery 645506978 K55.1 Will screen for carotid disease and ask neurology whether intracrani al angiograph y is indicated. Snoring 66909607 R06.83 has appt for sleep medicine eval in December. Facial paresthesia 55518 007 R20.2 ? if secondary to trigeminal nerve irritation . Inflammato ry markers were wnl. Will ask neuro to help further with evaluation . Gastric ulcer 710512309 K25.9 Will continue PPI and monitor blood counts. At this point we need to avoid ASA for CVD risk reduction. WIll start different antiplatel et agent. 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 Tolerating tx well with goal level of risk factor control. Continue current regimen. Asthma 868494240 J45.90 9 Based on negative methacholi ne challenge in e past I debate and will remove this diagnosis. Dyspnea is not consistent ly exertional . Will start with imaging and rule out DVT while arranging a pulmonary appt. Hypercholesterolemia 136 99737 E78.01 Atheroscle rosis of artery 491828273 K55.1 Will screen for carotid disease and ask neurology whether intracrani al angiograph y is indicated. Esophagitis 19914197 K20 .9 Pt advised to f/u with GI to reconcile discrepanc y in EGD findings in October, and discuss need for halfway PPI use. Dyspnea 975814566 R06.02 Cardiac eval if worsens/be comes consistent ly related to exertion. [id number] Raul Hill MD Main Office [address] [facility] [address] [facility] [place], [place] [id number] 09/20/2017 10:10:36 09/20/2017 11:17:08 Adult health examination 585951394 Z00.00 Immunizati on status utd, flu advised in the Fall. Will screen based on risk factors. Colon cancer screening is utd. Regular dental and ophtho care advised as well as seat belt and sunscreen use. Distracted driving discussed. Advance directives in place. Vitamin D deficiency 347 87469 E55.9 Has history, will see if persistent and replete if indicated. Hypercholesterolemia 136 46487 E78.01 On statin and tolerating well. Will reassess control. 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 Tolerating tx well with goal level of risk factor control. Continue current regimen. Body mass index 25-29 - overweight 693002580 E66.3 Z68.27 Hyperbilirubinemia 35345 006 E80.6 Likely [place]. Will monitor. [id number] Raul Hill MD Main Office [address] [facility] [address] [place] [address] 07/09/2018 08:59:25 07/09/2018 09:58:38 Paresthesia of hand 770679233 R20.2 with normal EMG last year will ask neuro to follow up with evaluation given progressio n. WIll Screen for metabolic/ inflammato ry conditions . Impairment of balance 38 6807401 R26.89 Given array of symptoms need to assess for proximal/c entral lesion(s). Right silva tid artery stenosis 9159743977 96634 I65.21 On statin and clopidogre l. Overdue for follow up. WIll arrange imaging and vascular appt [facility]. [id number] Raul Hill MD Main Office [address] [facility] [address] [place] [address] 01/06/2019 12:56:29 01/06/2019 13:55:29 Adult health examination 269173097 Z00.00 Immunizati on status updtaed, Shingrix advised via local pharmacy. Will screen based on risk factors. Colon cancer screening is utd. Regular dental and ophtho care advised as well as seat belt and sunscreen use. Distracted driving discussed. Advance directives in place. Needs infl uenza immunization 575600239 Z23 Hypercholesterolemia 136 28679 E78.01 On moderate dose statin and tolerating well. Will reassess control in the Spring. Varicella vaccination 68 059730 Z23 Vitamin D deficiency 347 86635 E55.9 Advised to resume daily supplement osmin during Winter months. Body mass index 25-29 - overweight 730771917 E66.3 Z68.26 Right silva tid artery stenosis 8399825982 50373 I65.21 Negative follow up ultrasound . Will remove from problem list. 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 Tolerating tx well with goal level of risk factor control. Continue current regimen. Polyp of colon 14652049 K63.5 due for f/u in 2021 Screening for malignant neoplasm of prostate 936889563 Z12.5 [id number] Raul Hill MD Tele[facility] [address] [facility] [address] [place] [id number] 07/24/2019 09:34:34 07/24/2019 13:11:02 Arteriosclerotic retinopathy 45711534 I70.8 On statin and antiplatel et agent. Tolerating tx well with goal level of risk factor control. Continue current regimen. Allergic headache 095790 6 G44.89 Suspect that his symptoms are allergy related. Will start with antihistam ine and add nasal steroid if persistent /worse. History of duodenal ulcer 034191037 Z87.11 Will see if reduced PPI dose is tolerated. Consider d/c if no recurrent issues at f/u. [id number] Raul Hill MD Main Office [address] [facility] [address] [facility] [address] 01/12/2020 11:01:07 01/12/2020 12:07:19 Adult health examination 633302151 Z00.00 Immunizati on status not updated, flu out of stock. Shingrix advised via local pharmacy. Will screen based on risk factors. Colon cancer screening is utd. Regular dental and ophtho care advised as well as seat belt and sunscreen use. Distracted driving discussed. Advance directives in place. Polyp of colon 79077453 K63.5 due for f/u in 2021 Hypercholesterolemia 136 66409 E78.01 On moderate dose statin and tolerating well. Will reassess control in the Spring. Varicella vaccination 68 501365 Z23 Vitamin D deficiency 347 86824 E55.9 Advised to resume daily supplement osmin during Winter months. Body mass index 25-29 - overweight 294380063 E66.3 Z68.27 Arterioscl erotic retinopathy 25606759 I70.8 On statin and antiplatel et agent. Tolerating tx well with goal level of risk factor control. Continue current regimen. Screening for malignant neoplasm of prostate 446428398 Z12.5 Multiple joint pain 3567 8005 M25.50 Most likely OA, advised to try turmeric and/or glucosamin e and chondrotin . Impaired f asting glycemia 074326131 R73.01 [id number] Claudio Pace PA-C Main Office [address] [facility] [address] [place] [address] 08/30/2020 15:34:14 08/30/2020 16:47:10 Candidal balanitis 81064177 B37.42 apparently rx'd c ketoconazo le by derm recently (as per pt, will attempt to get records) - trial c diflucan to see if this helps - also, see below Dysuria 80119062 R30.9 no dysuria but will use this dx code to check / r/o for uti, sti [id number] Raul Hill MD Telehealt [facility] [address] [facility] [address] [place] [address] 12/10/2020 08:18:11 12/10/2020 10:58:39 Cough 07694636 R05.3 No diffuse allergy symptoms but possible allergic component give seasonal nature. Will check CXR and try antihistam ine for a couple of weeks. If symptoms persist/wo rse woulr try ICS and consider allergy vs pulm consults. History of asthma 344219 007 Z87.09 Long-term current use of antiplatelet drug 7566320944 20844 Z79.02 Discussed indication s for his antiplatel et therapy which he has been on for atheroscle rotic eye disease found in 2017. Advised that it is ok to hold for 5 days prior to surgical procedures if surgeon prefers. [id number] Raul Hill MD Main Office [address] [facility] [address] [facility] [place] [address] 01/25/2021 08:36:11 01/25/2021 09:28:26 Adult health examination 997398715 Z00.00 Immunizati on status not updated. Shingrix advised via local pharmacy. Will screen based on risk factors. Colon cancer screening is utd. Regular dental and ophtho care advised as well as seat belt and sunscreen use. Distracted driving discussed. Advance directives in place. Varicella vaccination 68 184983 Z23 Needs infl uenza immunization 859883529 Z23 Prediabetes 761683146 R7 3.03 WIll monitor. Gynecomastia 8559200 N62 Hold PPI to see if related. Will check breast imaging and hormone labs. Long-term current use of antiplatelet drug 8759816652 52935 Z79.02 Discussed indication s for his antiplatel et therapy which he has been on for atheroscle rotic eye disease found in 2017. Body mass index 25-29 - overweight 905908138 E66.3 Z68.26 Hypercholesterolemia 136 18165 E78.01 On moderate dose statin and tolerating well. Will reassess control in the Spring. Arterioscl erotic retinopathy 50196543 I70.8 On statin and antiplatel et agent. Tolerating tx well with goal level of risk factor control. Continue current regimen. History of duodenal ulcer 867530369 Z87.11 Will see if reduced PPI dose is tolerated. Consider d/c if no recurrent issues at f/u. [id number] Raul Hill MD Main Office [address] [facility] [address] [facility] [address] 03/29/2021 13:29:01 03/29/2021 14:15:58 Gastroesophageal reflux disease 551627408 K21.9 Has been using PPI PRN. Advised to try H2B this way and if symptoms persist then tke PPI daily. Reactive a irway disease 7002668530 06 J45.909 Prediabetes 673032074 R7 3.03 WIll monitor. History of asthma 396910 007 Z87.09 Possibly related to allergies, maybe GERD contributi ng. Will ask allergy to consider further evaluation . Gynecomastia 1792503 N62 Imaging unremarkab le, pain resolved. No further evaluation warranted. [id number] Raul Hill MD Main Office [address] [facility] [address] [place] [address] 06/20/2021 11:23:00 06/20/2021 12:16:44 Mass of axilla 286742214 R22.2 Possible deep infection vs lymphadena bong. If persistent /worse following course of abx or if imaging unrevealin g will investigat e further with labs, further imaging and/or consider surgical consult. [id number] Raul Hill MD Main Office [address] [facility] [address] [place] [address] 07/14/2021 11:32:18 07/14/2021 12:15:56 Gynecomastia 6799834 N62 Imaging unremarkab le, pain waxes and wanes, weight gain/decon ditioning are likely mitigating factors. No further evaluation warranted at this time. Consider surgical eval if worse. Mass of axilla 549703576 R22.2 Unchanged serial imaging only demonstrat ing chronic post surgical changes. Injury of great toenail 145099464 S99.922A c/w subungual hematoma, reassuranc e provided. Pain in right arm 438814 004 M79.601 See if this helps with above issues. [id number] Raul Hill MD Main Office [address] [facility] [address] [place] [address] 09/13/2021 12:59:01 09/13/2021 13:33:42 Numbness of toe 081413228 R20.0 Possible mortons neuroma but with his other neuro complaints will revisit neurologis t consult. Ruleout out developmen t of diabetes and [id number] deficiency in the meantime. 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 Shingrix and bivalent COVID 19 booster advised via local pharmacy. Will screen based on risk factors. Colon cancer screening is utd. Regular dental and ophtho care advised as well as seat belt and sunscreen use. Distracted driving discussed. Advance directives in place. Screening for malignant neoplasm of colon 170696172 Z12.11 Pt will schedule GI follow up toby. Advised to call with any problems. Prediabetes 574544123 R7 3.03 Will monitor. Body mass index 25-29 - overweight 102644280 E66.3 Z68.28 Long-term current use of antiplatelet drug 0056319706 27381 Z79.02 Discussed indication s for his antiplatel et therapy which he has been on for atheroscle rotic eye disease found in 2017. Polyp of colon 31697892 K63.5 Overdue for f/u, pt will call to arrange toby and let me know if there are any obstacles. Gastroesop hageal reflux disease 759750883 K21.9 Has been using H2B PRN. No significan t warning signs. Will monitor. Varicella vaccination 68 167674 Z23 Nocturia 743065823 R35.1 [id number] Claudio Pace PA-C Main Office [address] [facility] [address] [facility] [place] [address] 03/23/2022 13:26:47 03/23/2022 14:26:19 Pain of left shoulder joint 7968585640 4188262 M25.512 L AC jt mildly swollen c slight tenderness /discomfor t - no h/o trauma so doubt separation --- ? slept on it awkwardly vs other - check xray for further eval ---- if sig separation then get ortho eval - meanwhile, rec prn ice and tyl and gentle HEP [id number] Claudio Pace PA-C Main Office [address] [facility] [address] [place] [address] 06/29/2022 15:43:57 06/29/2022 16:47:29 Pain of left shoulder joint 6334356752 2589046 M25.512 L AC jt mildly swollen c slight tenderness /discomfor t - no h/o trauma so doubt separation --- ? slept on it awkwardly vs other - check xray for further eval ---- if sig separation then get ortho eval - meanwhile, rec prn ice and tyl and gentle HEP 4.23 - had nl xray, some help c PT & massage - d/w AW - will consider mri in future if no help c further PT/massage /HEP (target pectoralis stretches) Pain in axilla 944079202 M79.622 R>L axilla pain, chronic - will attempt another round of PT -- if no sig help, then consider mri - see above [id number] America Pace PA-C Main Office [address] [place] [address] [place] [address] 08/30/2022 09:27:18 08/30/2022 10:10:54 Multiple joint pain 42029060 M25.50 R/o Lymes disease, inflammato ry arthritis, thyroid dysfunctio n, gout. Fatigue 84171698 R53.83 r/o thyroid d/o, anemia. Likely related to PLMD. 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 unaddresse d since. [id number] Raul Hill MD Main Office [address] [facility] [address] [place] [address] 11/20/2022 08:47:43 11/20/2022 09:39:23 Cough 27545885 R05.9 dry cough. continue benzonatat e. Dyspnea 524924803 R06.00 x6 weeks. significan t improvemen t since completion of prednisone - start the atrovent maintenanc e every 4-6hrs as needed [id number] Raul Hill MD Telehealt [facility] [address] [facility] [address] [place] [address] 02/23/2023 12:34:31 02/23/2023 13:36:18 Reactive airway disease 0030289945 06 J45.909 secondary to likely viral URI. Will address inflammati on with a short course of prednisone and continue anticholin ergic inhaler. Call inb/worse or if second sickening occurs as abx may then need to be considered . [id number] María Garrett Main Office [address] [facility] [address] [place] [address] 05/29/2023 15:08:59 05/29/2023 16:31:42 Adult health examination 732306865 Z00.00 Immunizati on status not utd. Shingrix and COVID 19 booster advised via local pharmacy. Will screen based on risk factors. Colon cancer screening is utd. Regular dental and ophtho care advised as well as seat belt and sunscreen use. Distracted driving discussed. Advance directives in place. Body mass index 25-29 - overweight 318142795 E66.3 Z68.28 Screening for malignant neoplasm of colon 216249858 Z12.11 Pt will schedule GI follow up toby. Advised to call with any problems. Prediabetes 662626424 R7 3.03 Will monitor. Long-term current use of antiplatelet drug 8495364365 64095 Z79.02 Discussed indication s for his antiplatel et therapy which he has been on for atheroscle rotic eye disease found in 2017. Polyp of colon 72946450 K63.5 Overdue for f/u, we will try to arrange for pt to facilitate compliance . Gastroesop hageal reflux disease 810780299 K21.9 Having breakthru symptoms on BID H2B, will resume PPI. Varicella vaccination 68 872602 Z23 History of duodenal ulcer 725422346 Z87.11 Having breakthru symptoms on BID H2B, will resume PPI. Cramp 07687093 R25.2 Try mg supplement , adequate hydration advised. Need to be vigilant regarding Mg on PPI. Hypercholesterolemia 136 89243 E78.01 Well controlled continue current statin dose. Pain of le ft shoulder joint 1594330378 2025331 M25.512 arthritic disease likely. Will ask ortho to help with eval/mgmt. Arterioscl erotic retinopathy 89882535 I70.8 On statin and antiplatel et agent. Tolerating tx well with goal level of risk factor control. Continue current regimen. [id number] Cecil Bliss MD Main Office [address] [facility] [address] [place] [address] 06/20/2023 14:03:25 06/20/2023 14:58:10 Chronic cough 89166019 R05.3 Reactive a irway disease 9977498220 06 J45.909 [id number] CRYSTAL OSMAN Main Office [address] [facility] [address] [facility] [address] 09/19/2023 11:27:04 09/19/2023 11:42:45 Neuropathy 150440609 G62.9 x4 days of symptoms; numbness/t ingling radiating from left anterior thigh to left foot-onset after ballroom dancing-azul s been stretching and light exercises at home-sympt oms have since resolved and pt reports he has not experience d the symptoms today-like ly was a pinched/co mpress nerve-disc ussed to continue with conservati ve measuremen ts-will put the lab work in, pt plans to complete if symptoms return [id number] Claudio ROJAS-Bam [facility] [address] [facility] [address] [place] [address] 12/11/2023 15:12:14 12/12/2023 13:30:41 Cough 38550734 R05.9 cough, chest congestion x 3 wks - suspect early pna - check cxrrec mucinexsee below Pneumonia 324276195 J18. 9 see abovewill rx c zpakrecomm end probiotics while on abx Mild inter mittent asthma 066945886 J45.20 last seen by pathology lab technician a few years ago - used to take atroventwi ll give trial of montelukas t [id number] Raul Hill MD Main Office [address] [facility] [address] [facility] [address] 01/10/2024 14:36:26 01/10/2024 15:28:26 Gastroesophageal reflux disease 328274303 K21.9 Well controlled and without warning signs on PPI. Needs infl uenza immunization 763077404 Z23 19 YEARS AND OLDER ONLY Prediabetes 631719378 R7 3.03 Will monitor. Pain of le ft hip joint 9781343627 56406 M25.552 New issue without previous eval. Will screen for hip/SIJ disease and try home therapy. If imaging abnl or symptoms worsen/per sist may need further evaluation /referral to ortho vs PMR. [id number] Claudio Pace PA-C Main Office [address] [facility] [address] [facility] [address] 02/20/2024 10:58:21 02/20/2024 11:56:58 Paresthesia 81914015 R20.2 ? paresthesi as as SE of recent shingrix vaccine - check labs & get neuro eval (last seen by neuro 12.24) as per online - The progressiv e neuropathy occurred a week following the vaccinatio n and progressed until discharge 16 days post-admit tance. The patient's mild symptoms persist. The developmen t of neuropathy following HZ/drew administra tion is exceedingl y rare, with an attributab le risk of three cases per million vaccines administer ed. do not recommend that he get second shingles shot unless cleared to do so by neurologis t also, rec stress reduction (mindfulne ss, meditation , yoga, walking) to help improve his immune system - if immune system is suppressed /down, his current symptoms (paresthes ias) may very well get worse *will fwd copy of this ov note to neuro* [id number] OJANN MCFARLAND MD Main Office [address] [facility] [address] [place] [address] 03/27/2024 11:28:37 03/27/2024 11:52:41 Venous sanchez [id number] D18.01 - located on the outer lip, right corner however that does extend and connect with larger pool of blood inside the inner lip Traumatic hematoma 73925 9004 T14.8XXA - located on the right side of the mouth, inner side of the lip and into the gum- based on the coloration this is a pool of blood however this is occurred is relatively unknown- patient on plavix which can increase the risk of this and increase the amount of blood in the location- do believe that this will be re-absorbe d in the body but may need draining therefore referred to [facility] for further evaluation - return precaution s given Health Concerns Section Related Observation LastModified by Organization Detai ls LastModified Time None Recorded Concern Status LastModified by Organization Details LastModified Time None Recorded Advance Directives Directive Y: Partner/Angela Payers Encounter Date Sequence Insurance Name Policy Number Policy Pardo Covered Member ID Pardo Member ID Guarantor Name 09/19/[address] [facility] [id number] Nick Aviles [id number] Nick Aviles 12/11/2023 1 [facility] Nick Peñaa [id number] Nick Peñaa 01/10/2024 1 [facility] Nick Peñaa [id number] Nick Aviles 02/20/2024 1 [facility] Nick Aviles [id number] Nick Aviles 03/27/2024 1 [facility] Nick Aviles [id number] Nick Aviles Notes Date Note Type Note Provider Name and Address Organization Details Recorded Time 09/19/19 24 text/htm l Nick is 63 yr old M who presents for neuropathy in the left leg/foot. Pt reports he was ballroom dancing and noticed intermittent symptoms of numbness/tingling x4 days ago. Has been stretching at home and reports that the symptoms have resolved. Has not experienced the numbness/tingling today. CRYSTAL OSMAN [address] [address], [place], [address], [facility] [place] 09/19/2023 12:18:49 12/11/19 24 text/htm l Covid negative yesterday and today. Symptoms began approx 3 weeks ago with cough, congestion, shortness of breath. chest tightness. he states unable to cough any mucous up but can feel and hear it.. Denies any other symptoms. No OTC Using his inhaler but not working no h/o pna+ h/o asthma - using inhalers - atrovent (from pathology lab technician - not refilled in a while - deleted from med list) & prn albable to speak in full sentences Claudio Pace PA-C [address] [address], [place], [address], [facility] [place] 12/11/2023 16:54:52 01/10/20 24 text/htm l GERD RefluxReported bypatient.SymptomsAsymptomatic; no difficulty swallowing; no pain swallowing; no postprandial pain Duration:present 5 or more years Context:non-smoker Associated Symptoms:no frequent coughing; no food getting stuck; no vomitingNotes:On PPI dailyHyperlipidemiaReported bypatient.Type of hyperlipidemia:hypercholesterol emia Duration:chronic Control:usually well controlled; at goal Current Therapy:currently taking: (rosuvastatin); last cholesterol level: (141); last LDL level: (78); last triglyceride level: (102); last HDL level: (42) Compliance:compliant; compliant with diet; exercises Complications:no coronary artery disease; no peripheral artery disease; no cardiovascular diseaseNotes:Had A1c 5.7, and FBG 101Musculoskeletal PainReported bypatient.Location:lumbar spine; left hip Severity:worsening Duration:present for 1-6 months Timing:intermittent; gradual Associated Symptoms:no fever; no weak limbs; no tingling; no numbness of the legs/feet Raul Hill MD [address], [address], [facility] [place] 01/10/2024 16:50:51 02/20/20 24 text/htm l Patient reports for last fe weeks experiencing a unusual sensation like muscle twitching inside left side of forehead down to left side of face to the chin. Denies any pain. as per recent portal message:Hi Dr Hill,I've recently been experiencing a tingling/tickling/fluttering feeling like a small electrical vibration in my forehead down to my chin on the left side of my face. There is no pain associated with this. I started having this feeling a couple of weeks or so ago. And just today, 02/18/24, I got a similar feeling in my left hand and elsewhere in my body. I'm concerned about this. I went for my first shingles shot on 01/28/24. Could this have something to do with what is happening to me? Thanks, Nick no new medsabove sxs are intermittent = none currentlyno weakness, pain, loss of movement Claudio Pace PA-C [address] [address], [place], [address], [facility] [place] 02/20/2024 12:03:13 03/27/19 25 text/htm l Skin LesionReported bypatient.Location:face Severity:mild Duration:started one day ago Onset/Timing:abrupt Context:no known trigger Associated Symptoms:no fever; no cold symptoms; no nausea; no vomiting; no diarrhea; no urinary symptoms; no skin flakes; no scabbing; no bruising; no draining; no lesions multiplying; no lesions spreading Nick Aviles is a 63 year old M who presents to the clinic with concerns of a skin lesion located on the right side mouth. Patient noticed it yesterday 03/26 and mentions that it has gotten bigger. The colour is purple-bosch, slightly raised with some white spots. It is not painful or tender and there is no discharge. He has not tried any medication. JOANN MCFARLAND MD [address] [address], [place], [address], [facility] [place] 03/27/2024 17:50:17
--- OUTSIDE RECORDS SUMMARY | 2024-04-02 17:35 | XMS_ITS | Continuity of Care Document ---
Author Organization [facility], Main Office Address [address] [facility] [address] [place] [address] Care Team Providers Care Public Address System Installer Name Role Phone RAUL HILL Primary Care Provider KEYANA SERRANO Division Director [phone] IVAN BUCKNER Neurologist ALONA LOBO Orthopedic Surgeon GWENDOLYN HERNANDEZ News Gathering Technician JANNIE SEARS Neurologist KANDIS ACKERMAN Coal Dumping Equipment Operator JUSTIN JONES Car Bracer Assessment No assessment recorded. Plan of Treatment Reminders Order Date Submit Date Provider Last Modified By Organization Details Last Modified Time Details Appointments PE EST 2024 02:15P M Raul Hill MD Not available Not available Not available Lab None recorded. Referral oral & maxillofa cial surgeon referral 2024 025 [email or web address] [facility], [address] [place], [address], 03/27/2024 16:43:26 Procedures None recorded. Surgeries None recorded. Imaging None recorded. Medication Orders None recorded. Patient TargetsNo targets recorded. Patient InstructionsNo instructions recorded. Reason for Referral Oral & Maxillofacial Surgeon Referral for Traumatic hematoma Referring Physician: Joann Mcfarland, Family Medicine, Encounter Date: 03/27/2024 Problems Name Problem SNOMED Code Status Onset Date Resolution Date Notes Provider Name and Address Organization Details Recorded Time Disorder of rotator cuff 348039703 Completed 201601/06/2019 Raul Hill MD [address], [place], [address], [facility] [place] 9 13:25:53 Chitremayne ns 13943793 Active 2016 FAVIAN Cedeno, [facility] 9 13:02:15 Asthma 858688037 Completed 201602/22/2017 Raul Hill MD [address], [place], [address], [facility] 7 08:04:11 Hypercho lesterol emia 56446014 Active 2016 FAVIAN Cedeno, [facility] 9 13:02:15 Vitamin D deficien cy 83323231 Active 2016 FAVIAN Cedeon, [facility] 9 13:02:15 Ventricu lar prematur e beats 10833986 Active 2016 FAVIAN Cedeno, [facility] 9 13:02:15 Greater trochant blayne pain syndrome 5270279 Active 2016 FAVIAN Cedeno, [facility] 9 13:02:15 Hyperbil irubinem ia 27491368 Completed 201601/06/2019 Raul Hill MD [address], [place], [address], [facility] 9 13:25:26 Snoring 35653896 Completed 201601/12/2020 Raul Hill MD [address], [place], [address], [facility] 0 11:53:26 Sleep apnea 48518856 Completed 201601/23/2017 Raul Hill MD [address], [place], [address], [facility] 7 11:27:27 Bilatera l tinnitus 79989908169 02 Active 2016 FAVIAN Cedeno, [facility] 9 13:02:15 Ulcer of duodenum 52725990 Completed 201609/20/2017 Raul Hill MD [address], [facility] [place], [address], [facility] 8 10:50:12 Erosive gastriti s 27983295816 62996 Completed 201609/20/2017 Raul Hill MD [address], [place], [address], [facility] 8 10:50:09 Esophagi tis 97432094 Completed 201609/20/2017 Raul Hill MD [address], [place], [address], [facility] 8 10:52:31 Arterios clerotic retinopa thy 30431957 Active 2016 moderate , tinya l FAVIAN Cedeno, [facility] 9 13:02:15 Right carotid artery stenosis 97805970631 9100 Completed 201601/06/2019 50-69% Raul Hill MD [address], [place], [address], [facility] 9 13:24:59 Periodic limb movement disorder 647105320 Active 2016 FAVIAN Cedeno, [facility] 9 13:02:15 Trigemin al neuralgi a 83893817 Completed 201601/12/2020 Raul Hill MD [address], [place], [address], [facility] 0 11:53:31 Headache 93938220 Completed 201601/06/2019 Raul Hill MD [address], [place], [address], [facility] 9 13:23:56 Cervical arthriti s 696315375 Active 2016 Lucille Villatoro [place] null, [facility] 9 13:02:15 History of duodenal ulcer 528668609 Active 2017 FAVIAN Cedeno, [facility] 9 13:02:15 Polyp of colon 38449804 Active 2017 FAVIAN Cedeno, [facility] 9 13:02:15 Body mass index 25-29 - overweig ht 549516783 Active 2018 Raul Hill MD [address], [place], [address], [facility] 9 13:28:06 Allergic headache 0237729 Active 2019 Raul Hill MD [address], [place], [address], [facility] 0 12:04:33 Bilatera l cataract s 22417854 Active 2019 Raul Hill MD [address], [place], [address], [facility] 0 09:56:54 Total bilirubi n above referenc e range 65996471541 9108 Completed 201901/30/2022 Raul Hill MD [address], [place], [address], [facility] 2 11:53:16 Subconju nctival hemorrha ge 95144426 Completed 202001/25/2021 Raul Hill MD [address] [address], [place], [address], [facility] 1 09:28:37 Nuclear sclerosi s 577390605 Active 2020 Raul Hill MD [address] [address], [place], [address], [facility] 1 09:19:50 Prediabe emily 507575351 Active 2020 Raul Hill MD [address] [address], [place], [address], [facility] 1 09:20:44 History of asthma 839952411 Active 2020 Raul Hill MD [address] [address], [place], [address], [facility] 1 09:43:50 Long-ter m current use of antiplat elet drug 77324722152 4101 Active 2020 Raul Hill MD [address] [address], [place], [address], [facility] 1 09:55:25 Gynecoma stia 1784720 Active 2021 Lucille Villatoro [place] null, [facility] 2 13:33:07 Gastroes ophageal reflux disease 661997971 Active 2021 Raul Hill MD [address] [address] [place], [address], [facility] 2 13:58:59 Internal hemorrho ids 67118715 Active 2021 Raul Hill MD [address] [address], [place], [address], [facility] 2 11:46:36 Tarsal tunnel syndrome 23930890 Active 2021 Raul Hill MD [address] [address], [place], [address], [facility] 2 11:08:54 Carpal tunnel syndrome 25459867 Active 2021 Raul Hill MD [address] [address], [place], [address], [facility] 2 11:09:23 Temporom andibula r joint disorder 24293087 Active 2021 Raul Hill MD [address] [address], [place], [address], [facility] 2 11:09:42 Congenit al pes planus 65987394 Active 2021 Raul Hill MD [address] [address], [place], [address], [facility] 2 11:10:05 Pain in axilla 830670309 Active 2022 Raul Hill MD [address] [address], [place], [address], [facility] 3 12:45:43 Mild intermit tent asthma 612367744 Active 2023 Claudio Pace PA-C [address] [address], [place], [address], [facility] 4 16:52:41 Paresthe rasheed 86008669 Active 2023 Claudio Pace PA-C [address] [address] [place], [address], [facility] 4 12:01:04 Problem Notes None recorded. Procedures Surgical History Date Name Laterality Status Provider Name and Address Organization Details Recorded Time 1 Orthopedic Surgery completed Raul Hill MD [address] [address], [place], [address], [facility] 01/25/2021 08:58:56 1 procedure on wrist completed Raul Hill MD [address] [address], [place], [address], [facility] 02/09/2021 20:02:24 7 Egd diagnostic brush wash completed Raul Hill MD [address] [address], [place], [address], [facility] 02/21/2017 12:29:31 7 Colonoscopy completed Lucille Villatoro [facility] 09/20/2017 10:34:53 7 Endoscopic us exam esoph completed Raul Hill MD [address], [address], [facility] 02/21/2017 12:29:47 Breast Surgery completed Raul Hill MD [address], [address], [facility] 06/26/2016 10:19:36 Imaging Results None recorded. Procedure Notes None recorded. Medical Equipment None Reported. Allergies Allergen ID Allergen Name Allergen Category Reaction Reaction Severity Criticality Documentation Date Start Date Code Code System Note Provider Name and Address Organization Details Recorded Time 67964 atorvasta tin medicatio n myalgias (muscle pain) moderate low 11/01/2022 86550 RxNorm NAVYA Ferreira, [facility] 4 15:29:03 Medications Name Sig Start Date [...] Updated DateTime 5 165.74 cm 28.1 kg/m2 69610.7 g 105 /min 99 % 99 % 98.2 [degF] 97 mm[Hg] 62 mm[Hg] Gaby Aguilar MA [place] - [facility] 5 11:35:43 Social History Question Answer Notes LastModified by Organizat ion Details LastModified Time Tobacco Smoking Status Never Smoker FAVIAN Finnegan [place] - [facility] 06/26/2016 09:43:38 Do You Have An Advance Directive? Yes Partner/D julio [email or web address] Information not available 01/30/2022 What Is Your Level Of Alcohol Consumption? Occasional [email or web address] Information not available 06/26/2016 Is Blood Transfusion Acceptable In An Emergency? Yes [email or web address] Information not available 06/26/2016 What Is Your Level Of Caffeine Consumption? None Decaf [email or web address] Information not available 01/30/2022 How Much Tobacco Do You Chew? None Information not available 09/20/2017 In The 14 Days Before Symptom Onset, Have You Had Close Contact With A Laboratory-confir med COVID-19 While That Case Was Ill? No [email or web address] Information not available 01/30/2022 In The 14 Days Before Symptom Onset, Have You Had Close Contact With A Person Who Is Under Investigation For COVID-19 While That Person Was Ill? No [email or web address] Information not available 01/30/2022 Have You Been To An Area Known To Be High Risk For COVID-19? No Information not available 01/30/2022 Are You Currently Employed? Yes [email or web address] Information not available 06/26/2016 What Type Of Diet Are You Following? REGULAR Information not available 06/26/2016 Which Illicit Or Recreational Drugs Have You Used? None Information not available 06/26/2016 Do You Or Have You Ever Used E-cigarettes Or Vape? 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 With Others Female Partner/D julio [email or web address] Information not available 01/30/2022 Do You Take Precautions To Prevent Distracted Driving? Yes Information not available 06/26/2016 How Often Do You Need To Have Someone Help You When You Read Instructions, Pamphlets, Or Other Written Material From Your Doctor Or Pharmacy? Never Information not available 09/20/2017 Have You Served In The ? No [email or web address] Information not available 06/26/2016 Have You Or [...] Do You Use Protection During Sex? No [email or web address] Information not available 06/26/2016 Do You Use Your Seat Belt Or Car Seat Routinely? Yes Information not available 01/25/2021 Seat Belts Used Routinely Yes [email or web address] Information not available 01/30/2022 Are You Sexually Active? Yes [email or web address] Information not available 06/26/2016 Smoke Alarm In Home Yes [email or web address] Information not available 01/30/2022 Do You Have Smoke And Carbon Monoxide Detectors In Your Home? Yes Information not available 01/25/2021 At What Age Did You Start Smoking Tobacco? 0 Information not available 09/20/2017 Are You Passively Exposed To Smoke? No [email or web address] Information no t available 06/26/2016 Do You Or Have You Ever Used Smokeless Tobacco? Never Used Smokeless Tobacco Information not available 01/12/2020 How Much Tobacco Do You Smoke? No Information not available 01/12/2020 Do You Use Any Illicit Or Recreational Drugs? No [email or web address] Information not available 01/30/2022 Do You Use Sunscreen Routinely? Yes [email or web address] Information not available 06/26/2016 How Many Years Have You Smoked Tobacco? 0 Information not available 09/20/2017 Do You Or Have You Ever Used Any Other Forms Of Tobacco Or Nicotine? No [email or web address] Information not available 01/30/2022 Sex: Unknown Functional Status Question Answer Note LastModified by Organizat ion Details LastModified Time Are you able to walk? YESWOREST [email or web address] Information not available 01/30/2022 Are you able to care for yourself? Yes [email or web address] Information not available 06/26/2016 What is your exercise level? Occasional Information not available 09/20/2017 Mental Status None recorded. Family History Relationship Description Onset Age of this Age Resolved Age Notes LastModified by Organization Details LastModified Time Brother Bipolar disorder [email or web address] Not available 01/30 10:58:58 Brother Diabetes mellitus [email or web address] Not available 06/26 07:37:49 Brother Rheumatoid arthritis 7 [email or web address] Not available 01/30 10:58:58 Brother Epilepsy Not availa ble 01/30/2022 10:58:58 Father Diabetes mellitus [email or web address] Not available 06/26 07:37:49 Father Myocardial infarction 69 [email or web address] Not available 01/04 10:58:58 Mother Hypertensive disorder [email or web address] Not available 01/06 13:29:11 Medical History Condition Response Other N Gout N Blood Diseases N Kidney Stones N Hyperthyroidism N Breast Cancer N Hypothyroidism N Lung Disease N Depression N COPD N Defects or Inherited Disease N Anesthesia Complications N Headaches/Migraines N Varicose Veins N Anxiety Disorder N Obesity N Vision or Eye Problems [...] Recorded Time Tdap 5 completed FAVIAN Cedeno [facility] 01/06/2019 13:02:19 COVID-19, mRNA, LNP-S, PF, 30 mcg/0.3 mL dose 1 completed FAVIAN Cedeno [facility] 01/25/2021 08:42:42 COVID-19, mRNA, LNP-S, PF, 30 mcg/0.3 mL dose 1 completed FAVIAN Cedeno [facility] 01/25/2021 08:42:42 Influenza, split virus, trivalent, preservative 4 completed FAVIAN Cedeno [facility] 01/25/2021 08:42:42 Influenza, split virus, quadrivalent, PF 7 completed FAVIAN Cedeno [facility] 09/13/2021 13:21:32 Influenza, split virus, quadrivalent, PF 9 completed FAVIAN Cedeno [facility] 09/13/2021 13:21:32 Influenza, split virus, quadrivalent, PF 1 completed FAVIAN Cedeno [facility] 09/13/2021 13:21:32 Influenza, split virus, quadrivalent, PF 2 completed FAVIAN Hall [facility] 01/30/2022 11:14:30 zoster recombinant 4 completed FAVIAN Hall [facility] 02/20/2024 11:12:55 Influenza, split virus, trivalent, PF 4 completed Raul Hill MD [address] [address], [place], [address], [facility] 01/10/2024 16:46:34 Past Encounters Encounter ID Performer Location Encounter Start Date Encounter Closed Date Diagnosis/Indication Diagnosis SNOMED-CT Code Diagnosis ICD10 Code Diagnosis Note [id number] JOANN MCFARLAND MD Main Office [address] [address] 03/27/2024 11:28:37 03/27/2024 11:52:41 Venous sanchez [id number] D18.01 - located on the outer lip, right corner however that does extend and connect with larger pool of blood inside the inner lip Traumatic hematoma 08752 9004 T14.8XXA - located on the right [...] by Organization Details LastModified Time None Recorded Payers Encounter Date Sequence Insurance Name Policy Number Policy Pardo Covered Member ID Pardo Member ID Guarantor Name 03/27/2024 1 [facility] Nick Aviles [id number] Nick Aviles Notes Date Note Type Note Provider Name and Address Organization Details Recorded Time 03/27/2024 text/html Skin LesionRepor janel bypatient.Location:[facility] [place] Severity:mild Duration:started one day ago Onset/Timing:abrupt Context:no [...] not tried any medication. JOANN MCFARLAND MD [address] [address], [place], [address], [facility] 03/27/2024 17:50:17
--- OUTSIDE RECORDS SUMMARY | 2024-04-02 17:36 | XMS_ITS ---
Author Name [facility] Organization Unknown Problems Problem Status Onset Date Problem Type Date of Resoluti on Source Low back strain active 2022-09-29 ProblemAct EN S_[facility] Myofascial pain syndrome of lower back active 2022-09-29 ProblemAct ENS[facility] Spasm of muscle of lower back active 2022-10-02 ProblemAct E[facility]
--- OUTSIDE RECORDS SUMMARY | 2024-04-02 17:36 | XMS_ITS | Data Portability ---
Author Organization [place] [facility] Garo Pina [facility] [place] Address [address] [place] [id number] Assessment Encounter Date Assessment Date Assessment LastModified by Organization Details LastModified Time 09/29/2022 09/29/2022 This is a 62-year-old male with 11-day history of lower back pain after lifting heavy water while shopping at [employer]. With the following notable diagnosis Lower back strain and muscle spasms. I had a lengthy discussion with the patient regarding management which include rest, heat, topical analgesics as well as [id number]-ral-[id number] analgesics. We also discussed placing him on a prednisone taper low-dose as well as cyclobenzaprine with the muscle spasms. He agrees with this plan. I will have him follow-up with our spine team within the next 2 weeks. Should his symptoms get worse he should contact our office or follow-up with our orthopedic urgent care. If this is after hours he understands he needs to go the emergency department if his symptoms are significant. There are no red flag symptoms at today's visit. He agrees with the above-noted plan. Prescriptions were sent off to his pharmacy of choice. Indirect care and treatment in conjunction with Dr. Willingham Additional treatment plan discussed with the patient in detail included the following; - Provider focused nonsteroidal anti-inflammatory regimen (discussed were the pros, cons, benefits and risks as well as any black box warnings) in patients over 60 years old they should be very cautious in taking these medications due to potential decreased kidney function and or elevated blood pressure. - Analgesic pain medication for pain suppression (discussed were the pros, cons, benefits and risks as well as any black box warnings) - The use of topical pain relieving medication were discussed - The use of ice to decrease inflammation and pain - The use of assistive ambulatory devices for ambulation and fall prevention - Formal specific guided physical therapy program I reviewed my findings at length with the patient today. ? ? ?We discussed the nature and etiology of this problem along with current treatment options. We discussed the expected course and outcomes and what to expect. We also discussed risks and benefits. ? ? ? All of their questions were answered today, and there was exhibited understanding and comprehension of all that was discussed. Time Spent: 10 minutes were spent reviewing previous imaging and charting. ? ? ?10 minutes were spent obtaining patient history. ? ? ?5 minutes were spent on physical exam. ? ? ?5? ? ?minutes were spent explaining diagnosis and assessment. Today's documentation was made using voice recognition software. This note may contain grammatical errors secondary to the software. Not available 10/02/2022 06:50:44 Plan of Treatment Reminders Order Date Submit Date Provider Last Modified By Organization Details Last Modified Time Details Appointments None recorded. Lab None recorded. Referral None recorded. Procedures None recorded. Surgeries None recorded. Imaging XR, lumbosacra l spine, 2 or 3 view 2022 023 [email or web address] [facility], [address], [address], [place], [address], 06:10:45 Medication Orders cyclobenza evaristo 10 mg tablet 2022 023 [email or web address] [address] [place], [address], 17:05:25 Medrol (Mayito) 4 mg tablets in a dose pack 2022 023 [email or web address] [address] [place], [address], 17:05:25 Patient TargetsNo targets recorded. Patient Instructions Encounter Date Encounter Id Patient Instructions Last Modified By Organization Details Last Modified Time 09/29/2022 [id number] X-ray of the lumbar spine AP view reveal well-maintained spacing no acute bony abnormality no obvious fractures. Not available 10/02/2022 06:51:20 Reason for Referral None Reported. Problems Name Problem SNOMED Code Status Onset Date Resolution Date Notes Provider Name and Address Organization Details Recorded Time Low back strain 590136367 Active 2022 MAINOR MANJARREZ PA-C [address], [place], [id number], [facility], P 3 16:58:57 Myofascial pain syndrome of lower back 315862573 Active 2022 MAINOR MANJARREZ PA-C [address], [place], [place], [address], [facility], P 3 16:59:56 Spasm of muscle of lower back 3072339392907 9105 Active 2022 MAINOR MANJARREZ PA-C [address], [place], [place], [address], [facility], P 06:49:14 Problem Notes None recorded. Medical Equipment None Reported. Medications Name Sig Start Date Stop Date Status Note LastModified by Organization Details LastModified Time cyclobenzapr ine 10 mg tablet Take 1 tablet 3 times a day by oral route. 2022 active Not Available Not Available Not Avai lable Medrol (Mayito) 4 mg tablets in a dose pack follow package directions 2022 active Not Available Not Available Not Avai lable atorvastatin active Not Available Not Available Not Available famotidine active Not Available Not Av ailable Not Available clopidogrel active Not Available Not A vailable Not Available Vitals Date Recorded Body height Body mass index (BMI) Body weight Provider Name and Address Organization Details Last Updated DateTime 09/29/2022 165.1 cm 27.5 kg/m2 79715.74 g Stoney Arvin [facility], P 09/29/2022 16:41:48 Social History Question Answer Notes LastModified by Organizat ion Details LastModified Time Tobacco Smoking Status Never Smoker Stoney Arvin reinoso, [facility], P 09/29/2022 16:29:35 What Is Your Level Of Alcohol Consumption? None [email or web address] Information not available 09/29/2022 Sex: Unknown Functional Status None recorded. Mental Status None recorded. Family History Nothing Reported. Medical History Condition Response Asthma Y Past Encounters Encounter ID Performer Location Encounter Start Date Encounter Closed Date Diagnosis/Indication Diagnosis SNOMED-CT Code Diagnosis ICD10 Code Diagnosis Note [id number] Alec Willingham MD [facility] [address] [facility] [place] [address] 09/29/2022 15:56:20 09/29/2022 17:03:12 Low back pain 321120669 M54.50 Low back strain 07329353 1 S39.012A Myofascial pain syndrome of lower back 501615494 M54.59 Spasm of m uscle of lower back 3093249221 6088166 M62.830 Health Concerns Section Related Observation LastModified by Organization Detai ls LastModified Time None Recorded Concern Status LastModified by Organization Details LastModified Time None Recorded Advance Directives Directive None Recorded Payers Encounter Date Sequence Insurance Name Policy Number Policy Pardo Covered Member ID Pardo Member ID Guarantor Name 09/29/2022 1 [employer] - [employer] [id number] Nick Aviles [id number] Nick Aviles Notes Date Note Type Note Provider Name and Address Organization Details Recorded Time 09/29/2022 text/html This is a very pleasant 62-year-old male who comes into our orthopedic urgent care for evaluation of lower back pain with notable spasming that occurred 11 days ago while attempting to lift a case of heavy water while shopping at [employer]. He states certain positions such as bending down make his back pain worse. He is having a hard time sleeping. He denies any red flag symptoms such as urinary or fecal incontinence or saddle anesthesia. He also denies any tearing back pain. He has been utilizing [id number]-[id number] pain medication which gives him minimal relief. He is here for evaluation treatment. He denies any prior back problems. MAINOR MANJARRZE PA-C [address], [place], [address], [place] [facility] [place], [facility] 10/02/2022 06:51:44
== END 2024-04-02 15:49 | disposition home or self-care (01) ==
LOC: HO.MRI 15:48
PROVIDERS: PCP Pediatrics; Visit Provider Psychiatry & Neurology Neurology
DX: G50.9 Disorder of trigeminal nerve, unspecified (principal)
CPT/HCPCS: 70553; A9585

== ENCOUNTER → 2024-04-02 16:02 | Outpatient (BNV) | payer OTHER, SELFPAY | PROVIDERS: PCP Pediatrics; Visit Provider Radiology Diagnostic Radiology | DX: J32.9 Chronic sinusitis, unspecified (principal) | CPT/HCPCS: 70553 ==